=== PATIENT | male | born 1960 | race African-American/Black ===

== ENCOUNTER 2018-03-19 10:12 | Inpatient (IN) | payer OTHER ==
[2018-03-19 11:15] LABS: INR-International Normal Ratio 1.3; PTT 31.5 SEC (22.9-36.1)
[2018-03-19 11:16] LABS: Hemoglobin 11.1 g/dL (14.0-18.0); Mean Corpuscular HGB CONC 31.4 g/dL (32.0-36.0); Mean Corpuscular Hemoglobin 26.4 pg (27.0-31.0); Mean Corpuscular Volume 84.2 fL (78.0-98.0); Platelet Count 196 thou/uL (130-400); RBC Distribution Width 15.6 % (11.5-14.5); Red Blood Cell (RBC) Count 4.21 mill/uL (4.70-6.10); White Blood Cell (WBC) Count 6.9 thou/uL (4.8-10.8)
[2018-03-19 11:20] LABS: Base Excess-Venous 1.3 mmol/L (0 (+/- 2.5)); Bicarbonate (HCO3v) 28.2 mmol/L (1.0-85.0); CO2 Tension (PvCO2) 53.6 mmHg (41.0-51.0); Calcium, Ionized 1.07 mmol/L (1.12-1.32); Hemoglobin - Calc 12.7 g/dL (12.0-18.0); O2 Tension (PvO2) 52.8 mmHg (35.0-45.0); T. Carbon Dioxide 29.9 mmol/L (1.0-85.0); vO2 Saturation-calc 83.7 % (94-98)
[2018-03-19 11:27] LABS: ALT (SGPT) 47 U/L (8-55); AST (SGOT) 30 U/L (5-34); Albumin 3.9 g/dL (3.5-5.0); Alkaline Phosphatase 116 U/L (40-150); Anion Gap 13 mmol/L (10-20); BUN (Urea Nitrogen) 22 mg/dL (8.4-25.7); CK (CPK) 177 U/L (30-200); Calc. Creatinine Clearance 0 mL/min (70-130); Calcium 8.5 mg/dL (7.8-10.44); Carbon Dioxide 26 mmol/L (22-29); Chloride 106 mmol/L (98-107); Estimated GFR-MDRD 65; Globulin 2.6 g/dL (2.4-3.5); Glucose 95 mg/dL (70-105); Lipase 6 U/L (8-78); Potassium 4.1 mmol/L (3.5-5.1); Protein, Total 6.5 g/dL (6.0-8.3); Sodium 141 mmol/L (136-145)
[2018-03-19 11:32] LABS: CKMB 5.2 ng/mL (0-6.6); Troponin I 0.022 ng/mL (< 0.028)
[2018-03-19] MEDS ORDERED: Furosemide 100 MG/10 ML VIAL ONE (11:33)
[2018-03-19] MEDS ORDERED: Nitroglycerin 0.4 MG TAB (25 Tab Bottle) ONE (11:33)
[2018-03-19 11:57] LABS: Band 2 % (5-11); Eosinophils 2 % (0-10); Large Platelets SLIGHT; Lymphocytes 10 % (21-51); MDiff Complete? YES; Neutrophil 86 % (42-75); PLT Morphology Comment Appears Adequate; Polychromasia SLIGHT = 2-3 cells (100X) (0-2/hpf)
[2018-03-19] MEDS ORDERED: methylPREDNISolone Sod Succ/PF 125 MG/2 ML VIAL ONE (12:08)
[2018-03-19] MEDS ORDERED: Enalaprilat Dihydrate 1.25 MG/ML VIAL ONE (13:16)
--- NOTE | 2018-03-19 13:27 | RAD ---
FRONTAL RADIOGRAPH CHEST: DATE: 03/19/18. COMPARISON: 10/04/16. HISTORY: Passed out, dyspnea, pain. FINDINGS: Stable prominence of the cardiac silhouette. Pulmonary vascular congestion noted. Stable dual-lead AICD. No pneumothorax, lobar consolidation, or alveolar edema. IMPRESSION: Pulmonary vascular congestion and prominence of the cardiac silhouette. POS: [facility]
[2018-03-19] MEDS ORDERED: Sodium Chloride 0.9% 50 ML IVPB SCH (13:30)
[2018-03-19] MEDS ORDERED: Ondansetron HCl/PF 4 MG/2 ML Vial IVP PRN ×2 (16:17→17:12)
[2018-03-19] MEDS ORDERED: Ondansetron ODT 4 MG TAB SL PRN (16:17)
[2018-03-19] MEDS ORDERED: Acetaminophen 325 MG TAB PO PRN (16:17)
[2018-03-19 17:10] VITALS: BMI 39.2
[2018-03-19] MEDS ORDERED: Dextrose 5% in Water 1,000 ML IV PRN (17:12)
[2018-03-19] MEDS ORDERED: Labetalol HCl 100 MG/20 ML VIAL SLOW IVP PRN (17:12)
[2018-03-19] MEDS ORDERED: Ondansetron ODT 4 MG TAB PO PRN (17:12)
[2018-03-19] MEDS ORDERED: Dextrose 50% Abboject 50 ML SYRINGE SLOW IVP PRN (17:12)
[2018-03-19] MEDS ORDERED: HumaLOG 300 UNITS/3 ML VIAL SC PRN (17:12)
[2018-03-19] MEDS ORDERED: Enoxaparin Sodium 40 MG/0.4 ML SYRINGE SC SCH (17:12)
[2018-03-19] MEDS ORDERED: Acetaminophen 650 MG Suppository PR PRN (17:12)
[2018-03-19 18:12] LABS: CKMB 5.3 ng/mL (0-6.6); Troponin I 0.017 ng/mL (< 0.028)
[2018-03-19] MEDS: Furosemide 40 MG/4 ML VIAL SLOW IVP SCH ×2 (18:33→22:13)
[2018-03-19] MEDS: Mometasone 100 MCG HFA INHALER INH SCH (18:44)
[2018-03-19] MEDS: Ipratropium Bromide 2.5 ml Neb NEB SCH (18:45)
[2018-03-19] MEDS ORDERED: Nitroglycerin 2% Ointment 1 INCH/1 GM Packet TOP SCH (20:00)
[2018-03-19] MEDS: Atorvastatin Calcium 40 MG TAB PO SCH (21:09)
[2018-03-19] MEDS: Famotidine 20 MG TAB PO SCH (21:09)
[2018-03-19] MEDS: hydrALAZINE 25 MG TAB PO SCH (21:09)
[2018-03-19] MEDS: Metoprolol Tartrate 100 MG TAB PO SCH (21:10)
[2018-03-19] MEDS: Terazosin HCl 5 MG CAP PO SCH (21:10)
[2018-03-19] MEDS: Acetaminophen 325 MG TAB PO PRN (21:11)
[2018-03-20] MEDS: Ipratropium Bromide 2.5 ml Neb NEB SCH ×5 (00:02→23:50)
[2018-03-20] MEDS: Nitroglycerin 2% Ointment 1 INCH/1 GM Packet TOP SCH ×4 (00:09→21:31)
[2018-03-20 02:02] LABS: #Lymphocytes 1.2 thou/uL (1.20-3.40); #Monocytes 0.6 thou/uL (0.11-0.59); #Neutrophils 3.9 thou/uL (1.40-6.50); %Basophils 0.8 % (0.0-1.0); %Eosinophils 0.2 % (0.0-10.0); %Lymphocytes 20.8 % (21.0-51.0); %Monocytes 10.4 % (0.0-10.0); %Neutrophils 67.8 % (42.0-75.0); Hemoglobin 11.7 g/dL (14.0-18.0); Mean Corpuscular HGB CONC 34.6 g/dL (32.0-36.0); Mean Corpuscular Hemoglobin 28.7 pg (27.0-31.0); Mean Corpuscular Volume 83.1 fL (78.0-98.0); Mean Platelet Volume 8.8 fL (7.4-10.4); Platelet Count 142 thou/uL (130-400); RBC Distribution Width 15.7 % (11.5-14.5); Red Blood Cell (RBC) Count 4.07 mill/uL (4.70-6.10); White Blood Cell (WBC) Count 5.7 thou/uL (4.8-10.8)
[2018-03-20 02:11] LABS: Hemoglobin A1c 5.9 % (4.0-6.0)
[2018-03-20 02:23] LABS: CKMB 3.8 ng/mL (0-6.6); Troponin I 0.033 ng/mL (< 0.028)
[2018-03-20 02:24] LABS: Anion Gap 15 mmol/L (10-20); BUN (Urea Nitrogen) 21 mg/dL (8.4-25.7); Calc. Creatinine Clearance 125 mL/min (70-130); Calcium 8.6 mg/dL (7.8-10.44); Carbon Dioxide 27 mmol/L (22-29); Cardiac Risk 3.6 (Less than 4.5); Chloride 104 mmol/L (98-107); Cholesterol 124 mg/dl (< 200 Desired); Estimated GFR-MDRD 74; Glucose 164 mg/dL (70-105); HDL Cholesterol 34 mg/dL (>60 Neg Risk); LDL Cholesterol, Calculated 71 mg/dL; Magnesium 1.8 mg/dL (1.6-2.6); Potassium 3.5 mmol/L (3.5-5.1); Sodium 142 mmol/L (136-145); Triglycerides 96 mg/dL (Less than 150)
[2018-03-20] MEDS: Furosemide 40 MG/4 ML VIAL SLOW IVP SCH ×4 (05:39→23:41)
[2018-03-20] MEDS ORDERED: Spiriva 18 MCG CAP (Box of 5 Caps) INH SCH (07:00)
[2018-03-20] MEDS: Mometasone 100 MCG HFA INHALER INH SCH ×2 (07:41→19:12)
[2018-03-20] MEDS: hydrALAZINE 25 MG TAB PO SCH ×3 (09:01→20:06)
[2018-03-20] MEDS: Enoxaparin Sodium 40 MG/0.4 ML SYRINGE SC SCH (09:02)
[2018-03-20] MEDS: Metoprolol Tartrate 100 MG TAB PO SCH ×2 (09:02→20:07)
[2018-03-20] MEDS: Famotidine 20 MG TAB PO SCH ×2 (09:02→20:07)
--- NOTE | 2018-03-20 14:33 | PDOC.PN ---
- Subjective Encounter Start Date: 03/20/18 Encounter Start Time: 10:50 Pt sleepy, but arousable. says he is breathing better, feels better, no CP or SOB, no orthopnea or PND. No N/V/d/C Weight down 29 pounds since admit, doubt accurate. I/O admit to 0700 show neg 700ml All systems reviewed and neg x as above, echo pending - Objective Resuscitation Status: Resuscitation Status FULL:Full Resuscitation MAR Reviewed: Yes Vital Signs & Weight: Vital Signs (12 hours) Temp Pulse Resp BP BP Pulse Ox 03/20/18 13:36 54 L 12 03/20/18 12:00 97.2 F L 54 L 18 141/83 H 99 03/20/18 09:01 59 L 169/101 H 03/20/18 08:00 97.6 F 59 L 18 169/101 H 100 03/20/18 07:41 64 12 96 03/20/18 07:40 64 12 03/20/18 04:00 97.8 F 58 L 12 132/95 H 99 Weight Weight 266 lb I&O: 03/19/18 03/20/18 03/21/18 06:59 06:59 06:59 Intake Total 100 240 Output Total 700 Balance -600 240 Result Diagrams: 03/20/18 01:45 03/20/18 01:45 Additional Labs: Accuchecks 03/20/18 03/20/18 03/19/18 10:46 05:44 20:35 POC Glucose 199 H 136 H 167 H Phys Exam - Physical Examination Constitutional: NAD HEENT: PERRLA, moist MMs, sclera anicteric, oral pharynx no lesions Neck: no nodes, no JVD, supple, full ROM Respiratory: no wheezing, no rhonchi, clear to auscultation bilateral bibasilar crackles present, but improved Cardiovascular: RRR, no rub Gastrointestinal: soft, non-tender, positive bowel sounds Musculoskeletal: edema present Neurological: non-focal, normal sensation, moves all 4 limbs Lymphatic: no nodes Psychiatric: normal affect, A&O x 3 Skin: no rash, normal turgor, cap refill <2 seconds Dx/Plan (1) Acute on chronic combined systolic (congestive) and diastolic (congestive) heart failure Code(s): I50.43 - ACUTE ON CHRONIC COMBINED SYSTOLIC AND DIASTOLIC HRT FAIL Status: Acute (2) Hypertensive urgency Code(s): I16.0 - HYPERTENSIVE URGENCY Status: Chronic (3) HTN (hypertension) Code(s): I10 - ESSENTIAL (PRIMARY) HYPERTENSION Status: Chronic Qualifiers: Hypertension type: essential hypertension Qualified Code(s): I10 - Essential (primary) hypertension (4) HLD (hyperlipidemia) Code(s): E78.5 - HYPERLIPIDEMIA, UNSPECIFIED Status: Chronic Qualifiers: Hyperlipidemia type: unspecified Qualified Code(s): E78.5 - Hyperlipidemia , unspecified (5) Seizure disorder Code(s): G40.909 - EPILEPSY, UNSP, NOT INTRACTABLE, WITHOUT STATUS EPILEPTICUS Status: Acute - Plan cont current plan of care * . trop neg, tele neg, echo pending, contiue IV lasix today. strict I/O and daily weight
[2018-03-20] MEDS: Terazosin HCl 5 MG CAP PO SCH (20:07)
[2018-03-20] MEDS: Atorvastatin Calcium 40 MG TAB PO SCH (20:07)
[2018-03-20] MEDS: Acetaminophen 325 MG TAB PO PRN (20:19)
[2018-03-21] MEDS: Furosemide 40 MG/4 ML VIAL SLOW IVP SCH ×3 (04:40→16:58)
[2018-03-21] MEDS: Nitroglycerin 2% Ointment 1 INCH/1 GM Packet TOP SCH ×3 (05:46→20:56)
[2018-03-21 06:05] LABS: #Lymphocytes 1.2 thou/uL (1.20-3.40); #Monocytes 0.6 thou/uL (0.11-0.59); #Neutrophils 3.2 thou/uL (1.40-6.50); %Basophils 0.6 % (0.0-1.0); %Eosinophils 0.9 % (0.0-10.0); %Lymphocytes 24.3 % (21.0-51.0); %Neutrophils 63.3 % (42.0-75.0); Hemoglobin 11.6 g/dL (14.0-18.0); Mean Corpuscular HGB CONC 31.9 g/dL (32.0-36.0); Mean Corpuscular Hemoglobin 27.1 pg (27.0-31.0); Platelet Count 143 thou/uL (130-400); RBC Distribution Width 15.7 % (11.5-14.5); Red Blood Cell (RBC) Count 4.27 mill/uL (4.70-6.10); White Blood Cell (WBC) Count 5.1 thou/uL (4.8-10.8)
[2018-03-21 06:12] LABS: Anion Gap 12 mmol/L (10-20); BUN (Urea Nitrogen) 20 mg/dL (8.4-25.7); Calc. Creatinine Clearance 113 mL/min (70-130); Calcium 8.5 mg/dL (7.8-10.44); Carbon Dioxide 30 mmol/L (22-29); Chloride 104 mmol/L (98-107); Estimated GFR-MDRD 77; Glucose 115 mg/dL (70-105); Magnesium 1.9 mg/dL (1.6-2.6); Potassium 3.1 mmol/L (3.5-5.1); Sodium 143 mmol/L (136-145)
[2018-03-21] MEDS: Mometasone 100 MCG HFA INHALER INH SCH ×2 (06:53→19:23)
[2018-03-21] MEDS: Ipratropium Bromide 2.5 ml Neb NEB SCH ×3 (06:54→19:21)
[2018-03-21] MEDS: Metoprolol Tartrate 100 MG TAB PO SCH ×2 (08:44→20:52)
[2018-03-21] MEDS: Famotidine 20 MG TAB PO SCH ×2 (08:44→20:53)
[2018-03-21] MEDS: hydrALAZINE 25 MG TAB PO SCH ×3 (08:44→20:53)
[2018-03-21] MEDS: Enoxaparin Sodium 40 MG/0.4 ML SYRINGE SC SCH (08:45)
[2018-03-21] MEDS ORDERED: Potassium Chloride 20 MEQ TAB PO SCH (12:30)
--- NOTE | 2018-03-21 15:09 | PDOC.PN ---
- Subjective Encounter Start Date: 03/21/18 Encounter Start Time: 15:00 Subjective: f/u for acute systolic CHF exacerbation. Weight down 7lbs in last -: 24h. Less SOB and feels shank pinner. Appetite ok. - Objective Resuscitation Status: Resuscitation Status FULL:Full Resuscitation MAR Reviewed: Yes Vital Signs & Weight: Vital Signs (12 hours) Temp Pulse Resp BP BP Pulse Ox 03/21/18 12:00 98.1 F 52 L 17 128/77 97 03/21/18 08:44 56 L 131/78 03/21/18 08:00 98.6 F 56 L 18 131/78 96 03/21/18 07:41 98.2 F 70 12 96 03/21/18 06:54 70 12 03/21/18 04:00 97.9 F 54 L 19 145/94 H 98 Weight Weight 259 lb 12.8 oz I&O: 03/20/18 03/21/18 03/22/18 06:59 06:59 06:59 Intake Total 100 1460 Output Total 700 5150 Balance -600 -3690 Result Diagrams: 03/21/18 05:22 03/21/18 05:22 Additional Labs: Accuchecks 03/21/18 03/21/18 03/20/18 10:48 05:45 20:53 POC Glucose 136 H 132 H 164 H 03/20/18 16:35 POC Glucose 104 Laboratory Tests 03/19/18 03/20/18 10:54 01:45 Potassium 4.1 3.5 Triglycerides 96 Cholesterol 124 LDL Cholesterol, Calc 71 HDL Cholesterol 34 Radiology Reviewed by me: Yes (2D Echo - EF 35-40%, mild LAE) EKG Reviewed by me: Yes (Tele - SR in 60's) Phys Exam - Physical Examination Constitutional: NAD HEENT: PERRLA, sclera anicteric, oral pharynx no lesions Neck: no nodes, no JVD, supple, full ROM few bibasilar crackles Respiratory: no wheezing S1, S2 Cardiovascular: RRR, no significant murmur, no rub, gallop Gastrointestinal: soft, non-tender, no distention, positive bowel sounds mild peripheral edema Musculoskeletal: pulses present Neurological: non-focal, normal sensation, moves all 4 limbs Psychiatric: normal affect, A&O x 3 Skin: no rash, normal turgor, cap refill <2 seconds Dx/Plan (1) Acute systolic CHF (congestive heart failure) Code(s): I50.21 - ACUTE SYSTOLIC (CONGESTIVE) HEART FAILURE Status: Acute Comment: EF 35-40%, continue Lasix 40mg IV q8h, strict I/O's, daily weight (2) Hypokalemia Code(s): E87.6 - HYPOKALEMIA Status: Acute Comment: KCL 40meq BID, repeat K + level in am (3) Seizure disorder Code(s): G40.909 - EPILEPSY, UNSP, NOT INTRACTABLE, WITHOUT STATUS EPILEPTICUS Status: Acute (4) HTN (hypertension) Code(s): I10 - ESSENTIAL (PRIMARY) HYPERTENSION Status: Chronic Qualifiers: Hypertension type: essential hypertension Qualified Code(s): I10 - Essential (primary) hypertension Comment: Continue outpt BP regimen, serial monitoring, titrate to clinical response (5) Diabetes mellitus, type II, insulin dependent Code(s): E11.9 - TYPE 2 DIABETES MELLITUS WITHOUT COMPLICATIONS; Z79.4 - [facility] (CURRENT) USE OF INSULIN Status: Chronic Comment: Continue NHP insulin 10u qam and 20u qhs, ISS - Plan [employer], DVT proph w/SCDs Stable currently -: Continue Lasix 40mg IV q8h -: Resume home NPH insulin -: Resume home BP regimen -: Continue ASA/Lipitor * KCL 40meq BID * AM lab: BMP
[2018-03-21] MEDS: Potassium Chloride 20 MEQ TAB PO SCH (16:57)
[2018-03-21] MEDS: Atorvastatin Calcium 40 MG TAB PO SCH (20:51)
[2018-03-21] MEDS: Calcium Carbonate + Vit D 250 MG TAB PO SCH (20:52)
[2018-03-21] MEDS: Terazosin HCl 5 MG CAP PO SCH (20:52)
[2018-03-21] MEDS: Acetaminophen 325 MG TAB PO PRN (20:55)
[2018-03-21] MEDS ORDERED: Atorvastatin Calcium 40 MG TAB PO SCH (21:00)
[2018-03-21] MEDS ORDERED: Non-Formulary Item 1 EACH (Terazosin Hcl [Terazosin Hcl] 10 MG) PO SCH (21:00)
[2018-03-21] MEDS ORDERED: NPH, Human Insulin Isophane 300 UNIT/3 ML VIAL SC SCH (21:00)
[2018-03-21] MEDS ORDERED: CARBAMAZEPINE 400 MG PO SCH (21:00)
[2018-03-22] MEDS: Furosemide 40 MG/4 ML VIAL SLOW IVP SCH ×2 (00:18→10:28)
[2018-03-22] MEDS: Ibuprofen 200 MG TAB PO PRN ×3 (00:18→10:44)
[2018-03-22] MEDS: Ipratropium Bromide 2.5 ml Neb NEB SCH ×2 (00:30→06:50)
[2018-03-22] MEDS: Nitroglycerin 2% Ointment 1 INCH/1 GM Packet TOP SCH (05:47)
[2018-03-22 06:16] LABS: Anion Gap 13 mmol/L (10-20); BUN (Urea Nitrogen) 15 mg/dL (8.4-25.7); Calc. Creatinine Clearance 113 mL/min (70-130); Calcium 8.6 mg/dL (7.8-10.44); Carbon Dioxide 30 mmol/L (22-29); Chloride 103 mmol/L (98-107); Estimated GFR-MDRD 80; Glucose 116 mg/dL (70-105); Potassium 3.2 mmol/L (3.5-5.1); Sodium 143 mmol/L (136-145)
[2018-03-22] MEDS: Mometasone 100 MCG HFA INHALER INH SCH (06:50)
[2018-03-22] MEDS ORDERED: Lisinopril 20 MG TAB PO SCH (09:00)
[2018-03-22] MEDS ORDERED: CARBAMAZEPINE 200 MG PO SCH (09:00)
[2018-03-22] MEDS ORDERED: NPH, Human Insulin Isophane 300 UNIT/3 ML VIAL SC SCH (09:00)
[2018-03-22] MEDS ORDERED: Spiriva 18 MCG CAP (Box of 5 Caps) INH SCH (09:00)
[2018-03-22] MEDS ORDERED: Allopurinol 100 MG TAB PO SCH (09:00)
[2018-03-22] MEDS ORDERED: Venlafaxine HCl XR 150 MG CAP PO SCH (09:00)
[2018-03-22] MEDS: Famotidine 20 MG TAB PO SCH (10:25)
[2018-03-22] MEDS: Enoxaparin Sodium 40 MG/0.4 ML SYRINGE SC SCH (10:36)
[2018-03-22] MEDS: Potassium Chloride 20 MEQ TAB PO SCH (10:40)
[2018-03-22] MEDS: Calcium Carbonate + Vit D 250 MG TAB PO SCH (10:41)
[2018-03-22] MEDS: hydrALAZINE 25 MG TAB PO SCH (10:42)
--- NOTE | 2018-03-22 11:23 | DIS ---
DATE OF ADMISSION: 03/19/2018 DATE OF DISCHARGE: 03/22/2018 DISCHARGE DIAGNOSES: 1. Acute on chronic systolic congestive heart failure with ejection fraction of 35%-40%. 2. Hypokalemia. 3. Seizure disorder, stable. 4. Hypertension, labile. 5. Diabetes mellitus type 2, insulin requiring. CONSULTATIONS: None. PERTINENT LABORATORY DATA AND IMAGING DATA: Potassium ranged between 3.1-4.1, creatinine ranged betw een 1.14-1.36. Estimated GFR ranged between 65-80. BNP 1950, previously noted 1674 on 10/04/2016. Total cholesterol 124, triglycerides 96, HDL 34, LDL 71. Portable chest x-ray dated 03/19/2018 showe d pulmonary vascular prominence consistent with pulmonary edema. A 2D transthoracic echocardiogram d ated 03/20/2018 showed ejection fraction of 35%-40%. Mild left atrial enlargement. HOSPITAL COURSE: Patient was initially admitted to the telemetry unit after presenting with increase d shortness of breath and volume overload with chest imaging showing pulmonary edema. The patient wa s placed on IV Lasix throughout the hospital course with excellent diuresis and approximate 14 pound weight loss during the hospital course. The patient continued on IV Lasix until point of discharge, transitioning to Lasix 80 mg p.o. daily. The patient symptomatically improved and was maintaining O2 saturations greater than 90% on room air. The patient clinically improved without recurrence of marii rtness of breath with stable vital signs. The patient overall remained clinically stable during the hospital course, tolerating regular oral intake and voiding appropriately. I have examined the patie nt at the time of discharge and discussed followup instructions. The patient overall clinically sta ble and ready for discharge on 03/22/2018. DISCHARGE MEDICATIONS: 1. Allopurinol 100 mg p.o. daily. 2. Lipitor 40 mg p.o. at bedtime. 3. Calcium carbonate with vitamin D 250 mg p.o. t.i.d. 4. Carbamazepine extended release 200 mg p.o. daily and 400 mg p.o. at bedtime. 5. Flovent 110 grams inhaled b.i.d. 6. Lasix 80 mg p.o. daily. 7. Hydralazine 50 mg p.o. t.i.d. 8. NPH insulin 10 units subcutaneously q.a.m. and 20 units subcutaneously at bedtime. 9. Imdur extended release 30 mg p.o. b.i.d. 10. Lactulose 20 grams p.o. b.i.d. p.r.n. 11. Lisinopril 40 mg 1 tab p.o. daily. 12. Meloxicam 7.5 mg p.o. b.i.d. 13. Toprol-XL 100 mg p.o. b.i.d. 14. K-Dur 20 mEq p.o. t.i.d. 15. Terazosin 10 mg p.o. at bedtime. 16. Spiriva HandiHaler 18 mcg inhaled daily. 17. Venlafaxine 150 mg p.o. daily. FOLLOWUP: Patient will follow up with the [facility] after discharge. CONDITION ON DISCHARGE: Fair. ACTIVITY: Ad shaq. DIET: Heart healthy and ADA. CODE STATUS: FULL. DISPOSITION: Discharged to [facility] on 03/22/2018. Total time preparing and coordinating discharge is 34 minutes.
[2018-03-22 13:28] VITALS: BP 132/78
[2018-03-22 13:29] VITALS: TEMP 98.6
[2018-03-22] MEDS: Acetaminophen 325 MG TAB PO PRN (13:33)
--- NOTE | 2018-03-23 14:02 | HP ---
DATE OF ADMISSION: 03/19/2018 TIME OF SERVICE: 11:30 CHIEF COMPLAINT: Chest pain and shortness of breath. HISTORY OF PRESENT ILLNESS: Mr. Chandler is a 57-year-old male with a history of diabe gay mellitus type 2, GERD, hyperlipidemia, primary cholesterol, hypertension, osteoarthritis, COPD, g out, and recurrent genital herpes, who is brought to our facility from the [facility] for dalia luation of shortness of breath. The patient was seen initially in the emergency department. CBC looks fairly good. Chemistries were significant for creatinine of 1.36 and a BNP of 1949. Chest x-ray in the emergency department showe d some pulmonary vascular congestion and enlarged cardiac silhouette. We were subsequently called fo r admission for CHF exacerbation. The patient relates a history of approximately 40 pound weight gain. He said he periodically ends up having to come into the hospital to get diuresis. He does have orthopnea and PND, has some dyspnea on exertion. Currently, has no chest pain. No fevers or chills. No cough or sputum production. No diarrhea, constipation. No GI blood loss. In the emergency department, he did receive some enalapril for elevated blood pressure, Solu-Medrol, sublingual nitroglycerin x3, 80 mg of IV Lasix and a DuoNeb treatment. He has been urinating well an d is breathing better. PAST MEDICAL HISTORY: 1. Chronic heart failure. 2. Diabetes mellitus type 2. 3. Gastroesophageal reflux disease. 4. Hyperlipidemia. 5. Essential hypertension. 6. Osteoarthritis. 7. Chronic obstructive pulmonary disease. 8. Herpes simplex infection. 9. Osteoarthritis. 10. Gout. 11. Anxiety and depression. PAST SURGICAL HISTORY: 1. Includes a dual-chamber pacemaker placement. 2. Right arm pinning after a fall and fracture. MEDICATIONS: At [facility]. 1. Allopurinol 100 mg daily. 2. Aspirin 81 mg daily. 3. Atorvastatin 40 mg p.o. at bedtime. 4. Calcium carbonate with vitamin D3 250 mg p.o. t.i.d. 5. Carbamazepine 200 mg p.o. q.a.m. and 400 mg p.o. q.p.m. 6. Flovent HFA 1 puff inhaled b.i.d. 7. Lasix 80 mg p.o. daily. 8. Isosorbide mononitrate 30 mg p.o. b.i.d. 9. Lactulose 30 mL p.o. b.i.d. p.r.n. constipation. 10. Lisinopril 40 mg daily. 11. Meloxicam 7.5 mg daily. 12. Metoprolol succinate 100 mg p.o. b.i.d. 13. Novolin N 10 units q.a.m. and 20 units subq q.p.m. 14. Potassium chloride 20 mEq t.i.d. 15. Spiriva HandiHaler 1 puff inhaled daily. 16. Trazodone 10 mg p.o. daily. 17. Venlafaxine 150 mg p.o. q.p.m. 18. Hydralazine 50 mg p.o. t.i.d. ALLERGIES: NKDA. FAMILY HISTORY: Negative for clotting or bleeding disorder. No immune dysfunction. He does not hav e any early coronary artery disease. SOCIAL HISTORY: Negative for alcohol or drug use. Does have a history of smoking, quit smoking 7-8 years ago. Currently an inmate at the [facility]. REVIEW OF SYSTEMS: All systems reviewed and negative except as stated per HPI. PHYSICAL EXAMINATION: VITAL SIGNS: Temperature 98.2, pulse 66, blood pressure 193/135, respiratory rate 24, satting 97% on 2 liters nasal cannula. GENERAL: He is awake. He is alert and oriented x3. He is an obese male, appears i n no acute distress. HEENT: Normocephalic, atraumatic. Pupils equal, react bilaterally. NECK: JVD to approximately 7 cm at 45 degrees. He has normal carotid upstrokes. I do not appreciat e bruits. He has good range of motion. LUNGS: Coarse bibasilar crackles present bilaterally. He has no wheezes. No prolonged expiratory p hase. There is no rhonchi. CARDIOVASCULAR: Normal S1, S2. No S3. He does have an S4. No audible murmurs. ABDOMEN: Soft, it is obese. It is nontender, nondistended. He had good bowel sounds in all 4 quadr ants. There is no rebound, rigidity or guarding. EXTREMITIES: No cyanosis or clubbing with 2+ edema to the knee level. Cannot palpate pulses are pre sent, but his extremities are cool. Capillary refill is 2-3 seconds. SKIN: Warm, moist and well perfused. He has no other rashes or lesions. MUSCULOSKELETAL: Normal to inspection. Large joints appear normal. There is no evidence of inflamm ation. No palpable effusion. NEUROLOGIC: Shows cranial nerves II-XII grossly intact. No focal deficits, 5/5 strength in all 4 ex tremities and normal speech pattern. LABORATORY DATA: Sodium 141, potassium 4.1, chloride 106, bicarb 26, BUN 13, creatinine 1.36, glucos e 95, and calcium 8.5. Liver functions were within normal limits. CK is normal at 177, CK-MB 5.2 an d troponin I 0.022. BNP is 1949.7 and lipase normal at 6. CBC showed a white count of 6.9, hemoglobin 11.1, hematocrit 35.4, and platelet count is 196,000. 86 % granulocytes and 2% bands. INR is 1.3. VBG was apparently normal. Chest x-ray as above. IMPRESSION: 1. Acute on chronic heart failure, unknown systolic, diastolic or combined. We will get a 2-D echoc ardiogram, serial cardiac biomarkers. We will continue home medications. It is likely set off due t o uncontrolled hypertension. 2. Hypertensive urgency. The patient came in with a blood pressure in the 190s/130s. We will give IV hydralazine. Continue home medications and titrate up as needed. Continue IV Lasix scheduled and will get strict I's and O's and daily weights. 3. Essential hypertension as above. 4. Diabetes mellitus type 2. Continue home medications and sliding scale insulin. 5. Deep venous thrombosis prophylaxis. We will use IV Lovenox for DVT prophylaxis and Pepcid for GI prophylaxis.
== END 2018-03-22 14:31 | DRG 293 ==
LOC: ERS 10:12 → 2NO 16:12
PROVIDERS: ADMIT Internal Medicine Infectious Disease; ATTEND Internal Medicine Infectious Disease
DX: I11.0 Hypertensive heart disease with heart failure (principal); I50.43 Acute on chronic combined systolic (congestive) and diastolic (congestive) heart failure; E87.6 Hypokalemia; G40.909 Epilepsy, unspecified, not intractable, without status epilepticus; Z79.4 Long term (current) use of insulin; I16.0 Hypertensive urgency; E78.5 Hyperlipidemia, unspecified; F41.9 Anxiety disorder, unspecified; F32.9 Major depressive disorder, single episode, unspecified; Z87.891 Personal history of nicotine dependence; Z95.810 Presence of automatic (implantable) cardiac defibrillator; Z86.711 Personal history of pulmonary embolism; J44.9 Chronic obstructive pulmonary disease, unspecified; Z86.73 Personal history of transient ischemic attack (TIA), and cerebral infarction without residual deficits; E11.51 Type 2 diabetes mellitus with diabetic peripheral angiopathy without gangrene; K21.9 Gastro-esophageal reflux disease without esophagitis; M19.90 Unspecified osteoarthritis, unspecified site; M10.9 Gout, unspecified; A60.00 Herpesviral infection of urogenital system, unspecified
CPT/HCPCS: 36415; 36416; 71045; 80048; 80053; 80061; 82330; 82550; 82553; 82803; 83036; 83690; 83735; 83880; 84484; 85025; 85610; 85730; 93005; 93306; 93798; 94640; 94664; 96365; 96375; A4216; J1650; J1815; J1940; J2930; J7050; J7620; J7644

== ENCOUNTER 2018-04-04 07:43 | Emergency (ER) | payer OTHER ==
[2018-04-04 08:51] LABS: #Eosinphils 0.1 thou/uL (0.0-0.7); #Lymphocytes 1.4 thou/uL (1.20-3.40); #Monocytes 0.6 thou/uL (0.11-0.59); #Neutrophils 5.6 thou/uL (1.40-6.50); %Basophils 0.4 % (0.0-1.0); %Eosinophils 0.8 % (0.0-10.0); %Lymphocytes 18.4 % (21.0-51.0); %Monocytes 7.6 % (0.0-10.0); %Neutrophils 72.9 % (42.0-75.0); Hemoglobin 11.6 g/dL (14.0-18.0); Mean Corpuscular HGB CONC 31.7 g/dL (32.0-36.0); Mean Corpuscular Hemoglobin 26.8 pg (27.0-31.0); Mean Corpuscular Volume 84.6 fL (78.0-98.0); Mean Platelet Volume 8.9 fL (7.4-10.4); Platelet Count 172 thou/uL (130-400); RBC Distribution Width 15.7 % (11.5-14.5); Red Blood Cell (RBC) Count 4.32 mill/uL (4.70-6.10); White Blood Cell (WBC) Count 7.7 thou/uL (4.8-10.8)
[2018-04-04] MEDS ORDERED: Furosemide 40 MG/4 ML VIAL ONE (08:57)
[2018-04-04 09:16] LABS: ALT (SGPT) 49 U/L (8-55); AST (SGOT) 41 U/L (5-34); Albumin 3.8 g/dL (3.5-5.0); Alkaline Phosphatase 116 U/L (40-150); Anion Gap 9 mmol/L (10-20); BUN (Urea Nitrogen) 14 mg/dL (8.4-25.7); Bilirubin, Total 0.5 mg/dL (0.2-1.2); CK (CPK) 138 U/L (30-200); Calc. Creatinine Clearance 0 mL/min (70-130); Calcium 8.8 mg/dL (7.8-10.44); Carbon Dioxide 33 mmol/L (22-29); Chloride 108 mmol/L (98-107); Estimated GFR-MDRD 65; Globulin 2.9 g/dL (2.4-3.5); Glucose 111 mg/dL (70-105); Potassium 3.7 mmol/L (3.5-5.1); Protein, Total 6.7 g/dL (6.0-8.3); Sodium 146 mmol/L (136-145)
[2018-04-04 09:19] LABS: Troponin I 0.042 ng/mL (< 0.028)
[2018-04-04] MEDS ORDERED: hydrALAZINE 20 MG/ML VIAL ONE (09:28)
--- NOTE | 2018-04-04 10:06 | RAD ---
PORTABLE CHEST ONE VIEW: Date: 04-04-18 Time: 8:27 a.m. History: Shortness of breath, dyspnea. FINDINGS/IMPRESSION: Comparison made with exam 03-29-18. The heart size is enlarged. There is pulmonary vascular congestion. Left sided AICD remains in place. No lobar consolidation, pneumothoraces, or large effusions are seen. POS: [facility]
[2018-04-04 12:33] LABS: Troponin I 0.035 ng/mL (< 0.028)
== END 2018-04-04 12:58 | disposition short-term general hospital (02) ==
LOC: ERS 07:43
DX: E87.70 Fluid overload, unspecified (principal); R07.9 Chest pain, unspecified; I11.0 Hypertensive heart disease with heart failure; I50.9 Heart failure, unspecified; K21.9 Gastro-esophageal reflux disease without esophagitis; E78.5 Hyperlipidemia, unspecified; M19.90 Unspecified osteoarthritis, unspecified site; J44.9 Chronic obstructive pulmonary disease, unspecified; M10.9 Gout, unspecified; F41.9 Anxiety disorder, unspecified; I73.9 Peripheral vascular disease, unspecified; F32.9 Major depressive disorder, single episode, unspecified; Z87.891 Personal history of nicotine dependence; Z79.4 Long term (current) use of insulin; Z79.899 Other long term (current) drug therapy; Z79.82 Long term (current) use of aspirin
CPT/HCPCS: 36415; 71045; 80053; 82550; 82553; 83880; 84484; 85025; 93005; 96374; 96375; J0360; J1940

== ENCOUNTER 2019-02-06 11:35 | Emergency (ER) | payer OTHER ==
--- NOTE | 2019-02-06 12:03 | RAD ---
XR Chest 1 View Portable HISTORY: Dyspnea cough COMPARISON: 04/04/2018 FINDINGS: The heart size enlarged. The aorta is tortuous. Left-sided AICD remains in place. There is mild prom inence of the pulmonary vascularity. No lobar consolidation, pneumothoraces or large effusions are seen.
[2019-02-06 12:12] LABS: #Lymphocytes 0.8 thou/uL (1.20-3.40); #Monocytes 0.8 thou/uL (0.11-0.59); #Neutrophils 5.9 thou/uL (1.40-6.50); %Basophils 0.3 % (0.0-1.0); %Eosinophils 0.4 % (0.0-10.0); %Lymphocytes 10.2 % (21.0-51.0); %Monocytes 10.8 % (0.0-10.0); %Neutrophils 78.3 % (42.0-75.0); Hemoglobin 11.3 g/dL (14.0-18.0); Mean Corpuscular HGB CONC 31.8 g/dL (32.0-36.0); Mean Corpuscular Hemoglobin 28.7 pg (27.0-31.0); Mean Corpuscular Volume 90.2 fL (78.0-98.0); Mean Platelet Volume 8.7 fL (7.4-10.4); Platelet Count 205 thou/uL (130-400); RBC Distribution Width 14.3 % (11.5-14.5); Red Blood Cell (RBC) Count 3.95 mill/uL (4.70-6.10); White Blood Cell (WBC) Count 7.6 thou/uL (4.8-10.8)
[2019-02-06 12:36] LABS: ALT (SGPT) 144 U/L (8-55); AST (SGOT) 120 U/L (5-34); Albumin 3.7 g/dL (3.5-5.0); Alkaline Phosphatase 101 U/L (40-150); Anion Gap 15 mmol/L (10-20); BUN (Urea Nitrogen) 28 mg/dL (8.4-25.7); Bilirubin, Total 1.2 mg/dL (0.2-1.2); Calc. Creatinine Clearance 0 mL/min (70-130); Calcium 9.1 mg/dL (7.8-10.44); Carbon Dioxide 26 mmol/L (22-29); Chloride 100 mmol/L (98-107); Estimated GFR-MDRD 63; Globulin 2.2 g/dL (2.4-3.5); Glucose 103 mg/dL (70-105); Protein, Total 5.9 g/dL (6.0-8.3); Sodium 137 mmol/L (136-145)
== END 2019-02-06 14:40 | disposition home or self-care (01) ==
LOC: ERS 11:35
DX: J44.9 Chronic obstructive pulmonary disease, unspecified (principal); E11.9 Type 2 diabetes mellitus without complications; K21.9 Gastro-esophageal reflux disease without esophagitis; E78.5 Hyperlipidemia, unspecified; I11.0 Hypertensive heart disease with heart failure; I50.9 Heart failure, unspecified; F41.9 Anxiety disorder, unspecified; F32.9 Major depressive disorder, single episode, unspecified; Z87.891 Personal history of nicotine dependence; Z79.899 Other long term (current) drug therapy; Z79.82 Long term (current) use of aspirin; Z79.51 Long term (current) use of inhaled steroids; Z79.4 Long term (current) use of insulin
CPT/HCPCS: 36415; 71045; 80053; 83880; 84484; 85025; 93005; 94640; 94760; J7620

== ENCOUNTER 2019-06-11 06:03 | Inpatient (IN) | payer OTHER ==
[2019-06-11] MEDS ORDERED: Dextrose 50% Abboject 50 ML SYRINGE SLOW IVP PRN (08:45)
[2019-06-11] MEDS ORDERED: Dextrose 5% in Water 1,000 ML IV PRN (08:45)
[2019-06-11] MEDS ORDERED: Ondansetron ODT 4 MG TAB PO PRN (08:45)
[2019-06-11] MEDS ORDERED: Bisacodyl 10 MG SUPP PR PRN (08:45)
[2019-06-11] MEDS ORDERED: Senokot S 8.6-50 MG TAB PO PRN (08:45)
[2019-06-11] MEDS ORDERED: HumaLOG 300 UNITS/3 ML VIAL SC PRN (08:45)
[2019-06-11] MEDS ORDERED: Ondansetron PF 4 MG/2 ML Vial IVP PRN (08:45)
[2019-06-11] MEDS ORDERED: Enoxaparin Sodium 40 MG/0.4 ML SYRINGE SC SCH (09:00)
[2019-06-11] MEDS ORDERED: Furosemide 40 MG/4 ML VIAL SLOW IVP SCH ×2 (09:15→17:00)
[2019-06-11] MEDS ORDERED: Metolazone 2.5 MG TAB PO SCH (09:15)
--- NOTE | 2019-06-11 09:50 | HP ---
PRIMARY CARE PROVIDER: [facility]. CHIEF COMPLAINT: Worsening shortness of breath and leg swelling. HISTORY OF PRESENT ILLNESS: A 58-year-old male with known history of chronic systolic heart failure with ejection fraction of 35% to 40% in 2017, diabetes, peripheral artery disease, COPD, and others, admitted on transfer from [facility] for further evaluation and treatment of CHF. The patient reported progressive weight gain since about 1 month associated with worsening shortness of breath and cough and bilateral leg edema associated with orthopnea and PND. The patient reported weight gain of 35 pounds in the last one month. He admitted to not being very compliant with dietary restriction. He denied nausea, vomiting, hematemesis, hematochezia, hematuria, dysuria, but admitted to hesitancy and terminal dribbling. There is also no history of fever, chills, focal weakness, or fall. PAST MEDICAL HISTORY: 1. Chronic heart failure. 2. Type 2 diabetes mellitus. 3. Gastroesophageal reflux disease. 4. Hyperlipidemia. 5. Hypertension. 6. Chronic obstructive pulmonary disease. 7. Osteoarthritis. 8. Anxiety and depression. 9. Peripheral vascular disease. 10. Gout. 11. Cardiac arrhythmia, status post pacemaker placement. PAST SURGICAL HISTORY: 1. Dual-chamber pacemaker placement. 2. Right arm open reduction and internal fixation for fracture. FAMILY HISTORY: Reviewed, but noncontributory. No history of bleeding disorder or coronary artery disease. SOCIAL HISTORY: The patient currently is [facility] in the [facility]. [facility] has been in [facility] since [facility]. Prior to that, he drank alcohol heavily for more than 15 years and he also smoked like a pack a day for more than 20 years. ALLERGIES: NO KNOWN DRUG ALLERGIES REPORTED. HOME MEDICATIONS: 1. Aspirin 81 mg p.o. daily. 2. Lipitor 40 mg p.o. daily. 3. Calcium carbonate with vitamin D3 of p.o. t.i.d. 4. Flovent HFA 1 puff 2 times a day. 5. Furosemide 40 mg p.o. b.i.d. 6. Lisinopril 40 mg p.o. daily. 7. Potassium chloride 40 mEq daily in the morning. 8. Terazosin 10 mg once a day in the evening. 9. Isosorbide mononitrate 30 mg daily. 10. Loratadine 10 mg daily. 11. Spironolactone 25 mg daily. 12. Metformin 500 mg p.o. b.i.d. 13. Docusate sodium plus once daily. REVIEW OF SYSTEMS: 12-point review of systems performed was negative other than pertinent positives and negatives included in the history of present illness. PHYSICAL EXAMINATION: VITAL SIGNS: Temperature 97.5, pulse 94, respiratory rate 20, SpO2 of 95% on room air, blood pressure is 135/96. GENERAL: Obese male, in mild conversational dyspnea. Afebrile. Anicteric. Acyanotic. HEENT: Normocephalic, atraumatic. Oral mucosa is moist. NECK: Supple, nontender with no JVD. No masses were appreciated. CARDIOVASCULAR: Irregular rhythm and rate with normal heart sounds 1 and 2. RESPIRATORY: Fair air entry bilaterally with bibasilar crackles. No rhonchi were appreciated. No use of accessory muscles was noted. GI: Obese, soft, nontender, nondistended with normal bowel sounds. UROGENITAL: Moderate scrotal swelling noted. EXTREMITIES: [id number] bilateral leg edema noted. No erythema was appreciated. TOUR LEADER: Conscious, alert, oriented x3 with appropriate mental status. Cranial nerves 2 through 12 are grossly intact. The patient moves all extremities. DIAGNOSTIC DATA: CBC showed WBC count of 5.2, hemoglobin of 9.9, MCV of 79.6, platelet of 140. Of note, on February 06, 2019, hemoglobin was 11.9 and MCV was 90. Coagulation panel showed PT 17.8, INR 1.5, PTT 36.5. CMP showed sodium 143, potassium 3.0, chloride 103, CO2 of 31, BUN 18, creatinine 1.35, glucose 151, calcium 8.7, magnesium 1.8, total bilirubin 1.0, AST 21, ALT 15, alkaline phosphatase 104, total protein 6, albumin 3.5, globulin 2.5. Initial cardiac markers showed CK-MB 3.9, troponin 0.041, and BNP 968. Troponin has trended downwards to a ree of 0.025 currently. Lactic acid on presentation was 1.2. Chest x-ray showed cardiomegaly with pulmonary vascular congestion, but no definite confluent airspace opacity noted. Small bilateral pleural effusion was noted as well as AICD leads. Initial EKG performed at [facility] showed intermittently paced rhythm with rate of 86, as well as nonspecific ST and T changes. Review of telemetry showed baseline atrial flutter with ventricular paced rhythm. ASSESSMENT: 1. Acute on chronic heart failure, most likely combined systolic and diastolic. The patient has known cardiomyopathy with ejection fraction of 35% to 40% in 2017. 2. Chronic atrial flutter with paced ventricular rhythm. 3. Hypokalemia. 4. Anasarca: Most likely due to congestive heart failure. However, liver pathology cannot be ruled out given significant alcohol use in the past. 5. Peripheral vascular disease. 6. Hyperlipidemia, on statin. 7. Diabetic mellitus. 8. Gastroesophageal reflux disease. 9. Chronic obstructive pulmonary disease without acute exacerbation. 10. History of gout without acute exacerbation. 11. Chronic kidney disease stage 3 with possible reversible component. 12. Acute on chronic microcytic anemia. The patient had hemoglobin of 11.3 in January and currently is 9.9. PLAN: 1. We will start the patient on diuretic therapy with Lasix and metolazone as well as spironolactone. 2. We will replete serum potassium and get magnesium levels. 3. We will also get echocardiogram as well as liver ultrasound. We will also get cardiology consult. We will restart antihypertensives to get adequate BP control. 4. We will get urinalysis. 5. We will also get iron chemistry to rule in or rule out iron deficiency anemia. DuoNeb as needed will be provided for COPD. 6. DVT prophylaxis with Lovenox will be provided as well. 7. The patient wants to be full code. Further treatment to follow depending on hospital course. Job ID: [id number]
[2019-06-11 09:51] LABS: Troponin I 0.042 ng/mL (< 0.028)
--- NOTE | 2019-06-11 10:25 | ULT ---
EXAM: Bilateral lower extremity venous duplex: Deep veins evaluated with color Doppler, spectral analysis, and compression. INDICATIONS: Bilateral lower extremity pain and edema. FINDINGS: Deep veins interrogated include common femoral vein, femoral vein, popliteal vein, and post erior tibial vein. These veins show normal compression and blood flow. No evidence of DVT. IMPRESSION: Negative Bilateral venous duplex exam.
[2019-06-11] MEDS ORDERED: FLU VACC QS2019-20(6MOS UP)/PF 60 MCG/0.5 ML SYRINGE IM ONE (10:30)
[2019-06-11] MEDS ORDERED: Prevnar 13-Val Conj/PF 0.5 ML SYRINGE IM ONE (10:30)
[2019-06-11 11:56] LABS: Iron 41 ug/dL (65-175); Iron Binding Capacity, Total 405 mcg/dL (261-462); Potassium 3.2 mmol/L (3.5-5.1)
[2019-06-11] MEDS: Famotidine 20 MG TAB PO SCH ×2 (12:03→21:46)
[2019-06-11] MEDS: Famotidine/PF 20 mg/2ml Vial SLOW IVP SCH ×2 (13:01→21:47)
[2019-06-11 13:20] LABS: Bacteria/HPF None Seen HPF (None Seen); Bilirubin Negative (Negative); Blood, Urine Negative (Negative); Clarity Clear (Clear); Glucose, Urine (Dipstick) Normal (Negative); Leukocyte Negative Leu/uL (Negative); Nitrite Negative (Negative); Protein, Urine (Dipstick) Negative (Neg-Trace); RBC/HPF 0-3 HPF (0-3); Squamous Epithelial None Seen HPF (0-3); WBC/HPF 0-3 HPF (0-3)
[2019-06-11 13:23] LABS: Urine Culture Reflex No No
--- NOTE | 2019-06-11 15:36 | ULT ---
Gallbladder ultrasound: Multiple grayscale images of right upper quadrant obtained according to protocol. INDICATIONS: Right upper quadrant pain. FINDINGS: Gallbladder has a normal sonographic appearance. No evidence of gallstones. Common bile duct is normal caliber. Liver is enlarged measuring up to 23 cm. No liver mass lesion. Small volume ascites Right pleural effusion is noted. Pancreas is obscured Right kidney is imaged and appears unremarkable. IMPRESSION: 1. Hepatomegaly 2. Small volume ascites. Small right pleural effusion. 3. Gallbladder appears unremarkable
--- NOTE | 2019-06-11 15:43 | CON ---
DATE OF CONSULTATION: 06/11/2019 REASON FOR CONSULTATION: Heart failure. HISTORY OF PRESENT ILLNESS: Mr. Chandler is a 58-year-old inmate who comes to the hospital for worsening shortness of breath. He has a history of nonischemic cardiomyopathy with an EF of around 35% to 40%, was diagnosed in 2017. He sees a screw machine repairer in [place] in [facility]. He tells me he has had a heart catheterization before. He remembers being told that his arteries are wide open. He states that he has gained about 30 to 40 pounds in the last month or so, weight he feels is all fluid weight. He has already been giving Lasix; however, he is not peeing as much, and he feels some pain on the bottom, lower part of his abdomen. He is not aware of having any prostate issues. PAST MEDICAL HISTORY: 1. Nonischemic cardiomyopathy. 2. Type 2 diabetes. 3. GERD. 4. Hyperlipidemia. 5. Hypertension. 6. COPD. 7. Osteoarthritis. 8. Anxiety and depression. 9. Peripheral vascular disease. 10. Gout. 11. Cardiac arrhythmias, status post pacemaker placement. PAST SURGICAL HISTORY: 1. Dual-chamber pacemaker placed. 2. Right arm open reduction and internal fixation. FAMILY HISTORY: Noncontributory. SOCIAL HISTORY: In half-way since 2009. Heavy alcohol use before that for about 15 years. Smoked a pack a day for more than 20 years before that. OUTPATIENT MEDICATIONS: 1. Aspirin 81 a day. 2. Lipitor 40 at bedtime. 3. Calcium carbonate with vitamin D3. 4. Flovent. 5. Lasix 40 mg p.o. b.i.d. 6. Lisinopril 40 mg a day. 7. Potassium chloride 40 mEq a day. 8. Terazosin 10 mg a day. 9. Isosorbide mononitrate 30 mg a day. 10. Loratadine 10 mg a day. 11. Spironolactone 25 mg a day. 12. Metformin 500 mg b.i.d. 13. Docusate. ALLERGIES: NO KNOWN DRUG ALLERGIES. REVIEW OF SYSTEMS: A 12-point review of systems was done and was all negative unless stated in the History of Present Illness. PHYSICAL EXAMINATION: VITAL SIGNS: Temperature 98.4, pulse 88, respiratory rate 28, saturating 95% on room air, and blood pressure 135/96 up to 171/108. GENERAL: Awake, alert, and oriented x3. No distress. HEENT: Normocephalic, atraumatic. NECK: Supple. LUNGS: Clear. CARDIOVASCULAR: S1 and S2. No S3 or S4. No murmurs or rubs. ABDOMEN: Soft. Positive bowel sounds. EXTREMITIES: No edema. SKIN: Warm and dry. LABORATORY DATA: Laboratory work was reviewed. CBC with a white count of 5, hemoglobin 9.9, hematocrit of 34, and platelet count of 140. Coags were unremarkable. Chemistry showed a sodium of 143, potassium 3.0, chloride 103, carbon dioxide of 31, anion gap of 12, BUN 18, creatinine 1.35, and GFR of 65. BNP was 168. Troponin I was unremarkable. UA was unremarkable. IMAGING: Lower extremity venous ultrasound was negative. Chest x-ray showed findings consistent with congestive heart failure. It looks like a chest x-ray that shows more of an AICD rather than a pacemaker. ASSESSMENT: 1. Acute on chronic systolic heart failure. 2. Nonischemic cardiomyopathy, last ejection fraction here in 2017 at 35% to 40% . 3. Pacemaker/automatic implantable cardioverter-defibrillator in place. We will interrogate. 4. Atrial flutter. PLAN: 1. Continue IV diuresis. We will increase his Lasix to 80 mg b.i.d. 2. He is not urinating, however, has some fullness in his lower abdomen, which could be related to just having a full bladder and unable to evacuate. We will place a Julien for better in's and out's. 3. Continue other medications for now. 4. Will consult EP for atrial flutter. May be a candidate for ablation once more euvolemic. Thank you for allowing us to participate in the care of your patient. We will follow. Job ID: [id number] [facility]
[2019-06-11] MEDS: Carvedilol 6.25 MG TAB PO SCH (17:21)
[2019-06-11] MEDS: Warfarin Sodium 2.5 MG TAB PO SCH (17:22)
[2019-06-11] MEDS: Potassium Chloride 20 MEQ TAB PO SCH (17:23)
[2019-06-11] MEDS: Furosemide 40 MG/4 ML VIAL SLOW IVP SCH (17:24)
[2019-06-11] MEDS: Atorvastatin Calcium 40 MG TAB PO SCH (21:46)
[2019-06-11] MEDS: Terazosin HCl 5 MG CAP PO SCH (21:46)
[2019-06-11] MEDS: Allopurinol 100 MG TAB PO SCH (21:46)
[2019-06-11] MEDS: Isosorbide Mononitrate (ER) 30 MG TAB PO SCH (21:46)
[2019-06-11] MEDS: Iron, Sodium Ferric Gluconate 250 MG in Sodium Chloride 0.9% 100 ML IVPB SCH (21:47)
[2019-06-11] MEDS: HYDROcodone/Acetaminophen 5/325 mg Tablet PO PRN (21:50)
[2019-06-12] MEDS: Potassium Chloride 20 MEQ TAB PO SCH (00:29)
[2019-06-12 04:45] LABS: #Basophils 0.1 thou/uL (0.0-0.2); #Eosinphils 0.1 thou/uL (0.0-0.7); #Lymphocytes 1.1 thou/uL (1.20-3.40); #Monocytes 0.8 thou/uL (0.11-0.59); #Neutrophils 3.3 thou/uL (1.40-6.50); %Eosinophils 1.7 % (0.0-10.0); %Lymphocytes 20.5 % (21.0-51.0); %Monocytes 14.7 % (0.0-10.0); %Neutrophils 62.1 % (42.0-75.0); Hemoglobin 9.6 g/dL (14.0-18.0); Mean Corpuscular HGB CONC 30.8 g/dL (32.0-36.0); Mean Corpuscular Hemoglobin 24.4 pg (27.0-31.0); Mean Corpuscular Volume 79.2 fL (78.0-98.0); Mean Platelet Volume 9.6 fL (7.4-10.4); Platelet Count 130 thou/uL (130-400); Red Blood Cell (RBC) Count 3.93 mill/uL (4.70-6.10); White Blood Cell (WBC) Count 5.3 thou/uL (4.8-10.8)
[2019-06-12 04:46] LABS: INR-International Normal Ratio 1.5; Prothrombin Time 17.8 SEC (12.0-14.7)
[2019-06-12 05:10] LABS: ALT (SGPT) 14 U/L (8-55); AST (SGOT) 15 U/L (5-34); Albumin 3.4 g/dL (3.5-5.0); Alkaline Phosphatase 88 U/L (40-110); Anion Gap 8 mmol/L (10-20); BUN (Urea Nitrogen) 17 mg/dL (8.4-25.7); Bilirubin, Total 1.5 mg/dL (0.2-1.2); Calc. Creatinine Clearance 99 mL/min (70-130); Carbon Dioxide 34 mmol/L (22-29); Chloride 106 mmol/L (98-107); Estimated GFR-MDRD 63; Globulin 2.3 g/dL (2.4-3.5); Glucose 109 mg/dL (70-105); Magnesium 1.8 mg/dL (1.6-2.6); Potassium 3.8 mmol/L (3.5-5.1); Protein, Total 5.7 g/dL (6.0-8.3); Sodium 144 mmol/L (136-145)
[2019-06-12] MEDS: Furosemide 40 MG/4 ML VIAL SLOW IVP SCH ×2 (05:27→16:04)
[2019-06-12] MEDS ORDERED: Allopurinol 100 MG TAB PO SCH (09:00)
[2019-06-12] MEDS: Carvedilol 6.25 MG TAB PO SCH ×2 (09:06→16:04)
[2019-06-12] MEDS: Allopurinol 100 MG TAB PO SCH ×2 (09:07→21:17)
[2019-06-12] MEDS: Iron, Sodium Ferric Gluconate 250 MG in Sodium Chloride 0.9% 100 ML IVPB SCH (09:07)
[2019-06-12] MEDS: Metolazone 2.5 MG TAB PO SCH (09:07)
[2019-06-12] MEDS: Isosorbide Mononitrate (ER) 30 MG TAB PO SCH ×2 (09:07→21:18)
[2019-06-12] MEDS: HYDROcodone/Acetaminophen 5/325 mg Tablet PO PRN ×2 (09:11→16:17)
[2019-06-12] MEDS: Famotidine/PF 20 mg/2ml Vial SLOW IVP SCH (09:12)
[2019-06-12] MEDS: Famotidine 20 MG TAB PO SCH ×2 (09:12→21:17)
[2019-06-12] MEDS: HumaLOG 300 UNITS/3 ML VIAL SC PRN (11:18)
[2019-06-12] MEDS ORDERED: Albuterol Sulfate 1.25 MG/3 ML NEB NEB PRN (11:20)
--- NOTE | 2019-06-12 11:35 | PDOC.HOSPP ---
- Subjective Encounter Date: 06/12/19 (f/u heart failure) Encounter Time: 11:33 Subjective: Pt reports he is feeling better, swelling is less. c/o scrotal swelling. Denies cp/sob, n/v/abd pain. Does have decreased appetite. denies any new sx. - Objective Vital Signs & Weight: Vital Signs (12 hours) Temp Pulse Resp BP Pulse Ox 06/12/19 11:12 97.3 F L 81 16 136/94 H 93 L 06/12/19 07:34 98.3 F 86 16 171/104 H 93 L 06/12/19 05:30 97.8 F 90 18 164/102 H 94 L 06/12/19 00:00 98.0 F 96 23 H 174/95 H 94 L Weight Admit Weight 269 lb 8 oz Weight 269 lb 8 oz I&O: 06/11/19 06/12/19 06/13/19 06:59 06:59 06:59 Intake Total 1040 Output Total 4540 Balance -3500 Result Diagrams: 06/12/19 04:11 06/12/19 04:11 Additional Labs: Accuchecks 06/12/19 06/12/19 06/11/19 10:13 05:38 20:24 POC Glucose 202 H 117 H 125 H 06/11/19 06/11/19 16:42 12:06 POC Glucose 110 121 H EKG Reviewed by me: Yes (tele - a flutter <100 and v paced) Hospitalist ROS - Review of Systems Cardiovascular: denies: chest pain, palpitations, orthopnea, paroxysmal noc. dyspnea, edema, light headedness, other Gastrointestinal: denies: nausea, vomiting, abdominal pain, diarrhea, constipation, melena, hematochezia, other - Medication Medications: Active Medications Generic Name Dose Route Start Last Admin Trade Name Freq PRN Reason Stop Dose Admin Hydrocodone Bitart/Acetaminophen 1 tab 06/11/19 08:45 06/12/19 09:11 [place] 5/325 PO 1 tab Q4H PRN Administration Moderate Pain (4-6) Allopurinol 100 mg 06/11/19 21:00 06/12/19 09:07 Zyloprim PO 100 mg BID ARTURO Administration Atorvastatin Calcium 40 mg 06/11/19 21:00 06/11/19 21:46 Lipitor PO 40 mg HS ARTURO Administration Carvedilol 12.5 mg 06/11/19 17:00 06/12/19 09:06 Coreg PO 12.5 mg BID-WM ARTURO Administration Famotidine 20 mg 06/11/19 09:00 06/12/19 09:12 Pepcid SLOW IVP Not Given Q12HR ARTURO Famotidine 20 mg 06/11/19 09:00 06/12/19 09:12 Pepcid PO Not Given BID ARTURO Furosemide 80 mg 06/11/19 17:00 06/12/19 05:27 Lasix SLOW IVP 80 mg 0600,1700 ARTURO Administration Insulin Human Lispro 0 units 06/11/19 08:45 06/12/19 11:18 Humalog SC 4 unit .MODERATE SLIDING SC PRN Administration Moderate Correctional Scale Isosorbide Mononitrate 30 mg 06/11/19 21:00 06/12/19 09:07 Imdur Er PO 30 mg BID ARTURO Administration Metolazone 2.5 mg 06/12/19 08:30 06/12/19 09:07 Zaroxolyn PO 2.5 mg 0830 ARTURO Administration Sodium Chloride 10 ml 06/11/19 21:00 06/12/19 09:07 Flush - Normal Saline IVF 10 ml Q12HR ARTURO Administration Sodium Chloride 10 ml 06/11/19 09:01 06/11/19 17:23 Flush - Normal Saline IVF 10 ml PRN PRN Administration Saline Flush Terazosin HCl 10 mg 06/11/19 21:00 06/11/19 21:46 Hytrin PO 10 mg HS ARTURO Administration Warfarin Sodium 2.5 mg 06/11/19 17:00 06/11/19 17:22 Coumadin PO 2.5 mg 1700 ARTURO Administration - Exam General Appearance: NAD Heart: RRR, no murmur Heart - other findings: distant heart sounds Respiratory: CTAB, no wheezes, no rales, no ronchi Gastrointestinal: soft, non-tender, normal bowel sounds Extremities: no cyanosis, no clubbing Extremities - other findings: 2+ bilateral LE edema with hyperpigmentation Psychiatric: normal affect Hosp A/P (1) Acute on chronic combined systolic (congestive) and diastolic (congestive) heart failure Code(s): I50.43 - ACUTE ON CHRONIC COMBINED SYSTOLIC AND DIASTOLIC HRT FAIL Status: Acute (2) Anemia Code(s): D64.9 - ANEMIA, UNSPECIFIED Status: Chronic (3) CKD (chronic kidney disease) stage 2, GFR 60-89 ml/min Code(s): N18.2 - CHRONIC KIDNEY DISEASE, STAGE 2 (MILD) Status: Chronic (4) Diabetes mellitus, type II, insulin dependent Code(s): E11.9 - TYPE 2 DIABETES MELLITUS WITHOUT COMPLICATIONS; Z79.4 - COLOR DIPPER (CURRENT) USE OF INSULIN Status: Chronic (5) HLD (hyperlipidemia) Code(s): E78.5 - HYPERLIPIDEMIA, UNSPECIFIED Status: Chronic Qualifiers: (6) HTN (hypertension) Code(s): I10 - ESSENTIAL (PRIMARY) HYPERTENSION Status: Chronic Qualifiers: (7) Skin ulcer Code(s): L98.499 - NON-PRESSURE CHRONIC ULCER OF SKIN OF SITES W UNSP SEVERITY Status: Acute - Plan HF - appreciate Cardiology consult, continue diuresis and consult to EP for chronic a flutter chronic a flutter - rate controlled, on warfarin and sub-therapeutic. Will place request to pharmacy to dose HTn - not controlled - add hydralazine (home med) and lisinopril (home med) with hold parameters. Continue beta-wendy and diuresis with IV lasix anxiety/depression - resume home effexor COPD hx - compensated - on flovent - will add pulmicort neb here and prn albutgerol ckd stage 2 - monitor renal function and for anemia - check iron, vitamin b12 and folate skin ulcer - wound care treatment - currently has dressing, I reviewed photo and no surrounding erythema. Reviewed wound culture and staph aureus - will start keflex. Pt has bactrim on med rec - hold on this. dvt prophy - on coumadin gi prophy - not indicated code status full pt remains at high risk in current condition reviewed plan of care with patient, no questions or further needs at end of eval
[2019-06-12] MEDS ORDERED: Docusate Sodium 100 MG/10 ML UDCUP PO PRN (12:09)
--- NOTE | 2019-06-12 14:51 | PDOC.CPN ---
- Subjective Date: 06/12/19 Time: 14:48 Interval history: He has diuresed well. Still not quite to baseline. AICD interrogated and he has been in afib/flutter 99% of the time for last 7 months. - Review of Systems General: denies: fever/chills, weight/appetite/sleep changes, night sweats, fatigue Respiratory: denies: cough, congestion, shortness of breath, exercise intolerance Cardiovascular: denies: chest pain, palpitation, edema, paroxysmal nocturnal dyspnea, orthopnea Gastrointestinal: denies: nausea, vomiting, diarrhea, constipation, abd pain, GI bleeding Musculoskeletal: denies: pain, tenderness, stiffness, swelling, arthritis/ arthralgias Neurological: denies: numbness, syncope, seizure, weakness - Objective Allergies/Adverse Reactions: Allergies Allergy/AdvReac Type Severity Reaction Status Date / Time No Known Allergies Allergy Unverified 06/11/19 08:07 Visit Medications: Current Medications Acetaminophen (Tylenol) 650 mg PO Q4H PRN PRN Reason: Headache/Fever/Mild Pain (1-3) Hydrocodone Bitart/Acetaminophen ([place] 5/325) 1 tab PO Q4H PRN PRN Reason: Moderate Pain (4-6) Last Admin: 06/12/19 09:11 Dose: 1 tab Albuterol Sulfate (Albuterol Sulfate) 1.25 mg NEB [id number] PRN PRN Reason: Wheezing Allopurinol (Zyloprim) 100 mg PO BID [facility] Last Admin: 06/12/19 09:07 Dose: 100 mg Aspirin (Ecotrin) 81 mg PO DAILY [facility] Atorvastatin Calcium (Lipitor) 40 mg PO HS [facility] Last Admin: 06/11/19 21:46 Dose: 40 mg Bisacodyl (Dulcolax) 10 mg FL DAILYPRN PRN PRN Reason: Constipation Budesonide (Pulmicort Neb Solution) 0.25 mg INH BID-RT [facility] Carvedilol (Coreg) 12.5 mg PO BID-WM [facility] Last Admin: 06/12/19 09:06 Dose: 12.5 mg Cephalexin (Keflex) 500 mg PO TID [facility] Dextrose/Water (Dextrose 50%) 25 gm SLOW IVP PRN PRN PRN Reason: Hypoglycemia Docusate Sodium (Colace Liquid) 50 mg PO DAILY PRN PRN Reason: CONSTIPATION Docusate Sodium (Colace Liquid) 50 mg PO DAILY [facility] Famotidine (Pepcid) 20 mg SLOW IVP Q12HR [facility] Last Admin: 06/12/19 09:12 Dose: Not Given Famotidine (Pepcid) 20 mg PO BID [facility] Last Admin: 06/12/19 09:12 Dose: Not Given Furosemide (Lasix) 80 mg SLOW IVP 0600,1700 [facility] Last Admin: 06/12/19 05:27 Dose: 80 mg Glucagon (Glucagon) 1 mg IM PRN PRN PRN Reason: Hypoglycemia Hydralazine HCl (Apresoline) 50 mg PO TID [facility] Dextrose/Water (D5w) 1,000 mls @ 0 mls/hr IV .Q0M PRN PRN Reason: Hypoglycemia Insulin Human Lispro (Humalog) 0 units SC .MODERATE SLIDING SC PRN PRN Reason: Moderate Correctional Scale Last Admin: 06/12/19 11:18 Dose: 4 unit Insulin Human Lispro (Humalog) 0 units SC .BEDTIME SLIDING SC PRN PRN Reason: Bedtime Correctional Scale Isosorbide Mononitrate (Imdur Er) 30 mg PO BID [facility] Last Admin: 06/12/19 09:07 Dose: 30 mg Lisinopril (Zestril) 20 mg PO BID [facility] Loratadine (Claritin) 10 mg PO DAILY [facility] Metolazone (Zaroxolyn) 2.5 mg PO 0830 [facility] Last Admin: 06/12/19 09:07 Dose: 2.5 mg Miscellaneous Medication (Pharmacy To Dose) 1 each PO DAILY [facility] Ondansetron HCl (Zofran Odt) 4 mg PO Q6H PRN PRN Reason: Nausea/Vomiting Ondansetron HCl (Zofran) 4 mg IVP Q6H PRN PRN Reason: Nausea/Vomiting Senna/Docusate Sodium (Senokot S) 2 tab PO BID PRN PRN Reason: Constipation Sodium Chloride (Flush - Normal Saline) 10 ml IVF Q12HR [facility] Last Admin: 06/12/19 09:07 Dose: 10 ml Sodium Chloride (Flush - Normal Saline) 10 ml IVF PRN PRN PRN Reason: Saline Flush Last Admin: 06/11/19 17:23 Dose: 10 ml Terazosin HCl (Hytrin) 10 mg PO HS [facility] Last Admin: 06/11/19 21:46 Dose: 10 mg Venlafaxine HCl (Effexor Xr) 150 mg PO QAM [facility] Warfarin Sodium (Coumadin) 2.5 mg PO 1700 [facility] Last Admin: 06/11/19 17:22 Dose: 2.5 mg Vital Signs & Weight: Vital Signs Temp Pulse Pulse Pulse Resp BP BP 06/12/19 13:16 80 82 126/85 137/100 H 06/12/19 11:12 97.3 F L 81 16 06/12/19 07:34 98.3 F 86 16 06/12/19 05:30 97.8 F 90 18 BP Pulse Ox 06/12/19 13:16 06/12/19 11:12 136/94 H 93 L 06/12/19 07:34 171/104 H 93 L 06/12/19 05:30 164/102 H 94 L Admit Weight 269 lb 8 oz Weight 269 lb 8 oz - Physical Exam General: alert & oriented x3 HEENT: mucus membranes moist Neck: supple neck Cardiac: regular rate and rhythm, no murmur Lungs: clear to auscultation Neuro: grossly intact Abdomen: active bowel sounds, soft, non-tender Extremities: 1+ LE edema Skin: clear Musculoskeletal: no pain - Labs Result Diagrams: 06/12/19 04:11 06/12/19 04:11 Troponin/CKMB Troponin I 0.042 ng/mL (< 0.028) H 06/11/19 09:09 - Telemetry Supraventricular conduction: other (V paced.) - Assessment/Plan Assessment/Plan: 1. Acute on chronic systolic CHF 2. AICD in place 3. Aflutter/Afib 99% of the time for last 7 months. 4. Non ischemic CM, normal coronaries per patient report on [facility] done earlier this year. 5. HTN PLAN: - BP better controlled with addition of ACEI. - Continue warfarin for stroke prophylaxis. - Continue IV lasix. May need dobutamine to improve forward flow but will wait one more day.
[2019-06-12] MEDS ORDERED: Non-Formulary Item 1 EACH (Hydralazine Hcl [Hydralazine Hcl] 50 MG) PO SCH (15:00)
[2019-06-12] MEDS: Cephalexin 250 MG CAP PO SCH ×2 (16:03→21:16)
[2019-06-12] MEDS: Warfarin Sodium 2.5 MG TAB PO SCH (16:04)
[2019-06-12] MEDS: hydrALAZINE 25 MG TAB PO SCH ×2 (16:04→21:17)
[2019-06-12] MEDS: Budesonide 0.25 MG/2 ML NEB INH SCH (20:03)
[2019-06-12] MEDS: Terazosin HCl 5 MG CAP PO SCH (21:17)
[2019-06-12] MEDS: Atorvastatin Calcium 40 MG TAB PO SCH (21:17)
[2019-06-12] MEDS: Lisinopril 20 MG TAB PO SCH (21:18)
[2019-06-13] MEDS: HYDROcodone/Acetaminophen 5/325 mg Tablet PO PRN ×2 (03:38→21:36)
[2019-06-13 04:50] LABS: #Eosinphils 0.1 thou/uL (0.0-0.7); #Lymphocytes 0.8 thou/uL (1.20-3.40); #Monocytes 0.8 thou/uL (0.11-0.59); #Neutrophils 3.6 thou/uL (1.40-6.50); %Basophils 0.2 % (0.0-1.0); %Eosinophils 2.3 % (0.0-10.0); %Lymphocytes 15.6 % (21.0-51.0); %Monocytes 14.2 % (0.0-10.0); %Neutrophils 67.7 % (42.0-75.0); Hemoglobin 9.8 g/dL (14.0-18.0); Mean Corpuscular HGB CONC 30.8 g/dL (32.0-36.0); Mean Corpuscular Hemoglobin 24.5 pg (27.0-31.0); Mean Corpuscular Volume 79.4 fL (78.0-98.0); Mean Platelet Volume 9.6 fL (7.4-10.4); Platelet Count 125 thou/uL (130-400); RBC Distribution Width 17.2 % (11.5-14.5); Red Blood Cell (RBC) Count 4.01 mill/uL (4.70-6.10); White Blood Cell (WBC) Count 5.3 thou/uL (4.8-10.8)
[2019-06-13 04:52] LABS: INR-International Normal Ratio 1.5
[2019-06-13 05:11] LABS: Anion Gap 10 mmol/L (10-20); BUN (Urea Nitrogen) 18 mg/dL (8.4-25.7); Calc. Creatinine Clearance 103 mL/min (70-130); Calcium 9.1 mg/dL (7.8-10.44); Carbon Dioxide 35 mmol/L (22-29); Chloride 102 mmol/L (98-107); Estimated GFR-MDRD 67; Glucose 130 mg/dL (70-105); Potassium 3.2 mmol/L (3.5-5.1); Sodium 144 mmol/L (136-145)
[2019-06-13] MEDS: Furosemide 40 MG/4 ML VIAL SLOW IVP SCH ×2 (05:48→16:01)
[2019-06-13] MEDS: Budesonide 0.25 MG/2 ML NEB INH SCH ×2 (06:57→18:49)
[2019-06-13] MEDS: Carvedilol 6.25 MG TAB PO SCH ×2 (08:40→15:59)
[2019-06-13] MEDS: Docusate Sodium 100 MG/10 ML UDCUP PO SCH (08:41)
[2019-06-13] MEDS: Metolazone 2.5 MG TAB PO SCH (08:41)
[2019-06-13] MEDS: Cephalexin 250 MG CAP PO SCH (08:41)
[2019-06-13] MEDS: Allopurinol 100 MG TAB PO SCH ×2 (08:41→21:37)
[2019-06-13] MEDS: Aspirin 81 mg Enteric Coated Tablet PO SCH (08:41)
[2019-06-13] MEDS: Isosorbide Mononitrate (ER) 30 MG TAB PO SCH ×2 (08:42→21:36)
[2019-06-13] MEDS: Famotidine 20 MG TAB PO SCH ×2 (08:42→21:35)
[2019-06-13] MEDS: Loratadine 10 MG TAB PO SCH (08:42)
[2019-06-13] MEDS: Lisinopril 20 MG TAB PO SCH ×2 (08:42→21:36)
[2019-06-13] MEDS: Venlafaxine HCl XR 150 MG CAP PO SCH (08:43)
[2019-06-13] MEDS: hydrALAZINE 25 MG TAB PO SCH ×3 (08:43→21:36)
[2019-06-13] MEDS ORDERED: Loratadine 10 MG TAB PO SCH (09:00)
[2019-06-13] MEDS ORDERED: DOCUSATE SODIUM 50 MG PO SCH (09:00)
[2019-06-13] MEDS ORDERED: Potassium Chloride 20 MEQ TAB PO SCH (10:00)
[2019-06-13] MEDS ORDERED: Linezolid 600 MG TAB PO SCH (10:00)
--- NOTE | 2019-06-13 10:09 | PDOC.HOSPP ---
- Subjective Encounter Date: 06/13/19 (f/u heart failure) Encounter Time: 10:07 Subjective: Pt c/o swelling in scrotum and penis - unchanged since yesterday. Had some pain earlier. Has a smith cath in place for urinary obstruction on admission - UOP is 3L. Denies any chest pain. he thinks the swelling is a little better in legs today, appetite is improving. - Objective Vital Signs & Weight: Vital Signs (12 hours) Temp Pulse Resp BP Pulse Ox 06/13/19 07:06 97.8 F 80 16 128/94 H 99 06/13/19 03:16 97.9 F 84 18 136/89 94 L 06/13/19 00:00 98.1 F 80 20 140/83 93 L Weight Admit Weight 269 lb 8 oz Weight 267 lb 11.2 oz I&O: 06/12/19 06/13/19 06/14/19 06:59 06:59 06:59 Intake Total 1040 1320 Output Total 4540 5900 Balance -3500 -4580 Result Diagrams: 06/13/19 04:19 06/13/19 04:19 Additional Labs: Accuchecks 06/13/19 06/12/19 06/12/19 05:53 20:25 16:34 POC Glucose 134 H 106 101 06/12/19 10:13 POC Glucose 202 H EKG Reviewed by me: Yes (tele - a flutter vpaced rate 70's) Hospitalist ROS - Medication Medications: Active Medications Generic Name Dose Route Start Last Admin Trade Name Freq PRN Reason Stop Dose Admin Hydrocodone Bitart/Acetaminophen 1 tab 06/11/19 08:45 06/13/19 03:38 [place] 5/325 PO 1 tab Q4H PRN Administration Moderate Pain (4-6) Allopurinol 100 mg 06/11/19 21:00 06/13/19 08:41 Zyloprim PO 100 mg BID ARTURO Administration Aspirin 81 mg 06/13/19 09:00 06/13/19 08:41 Ecotrin PO 81 mg DAILY ARTURO Administration Atorvastatin Calcium 40 mg 06/11/19 21:00 06/12/19 21:17 Lipitor PO 40 mg HS ARTURO Administration Budesonide 0.25 mg 06/12/19 18:30 06/13/19 06:57 Pulmicort Neb Solution INH 0.25 mg BID-RT ARTURO Administration Carvedilol 12.5 mg 06/11/19 17:00 06/13/19 08:40 Coreg PO 12.5 mg BID-WM ARTURO Administration Docusate Sodium 50 mg 06/13/19 09:00 06/13/19 08:41 Colace Liquid PO 50 mg DAILY ARTURO Administration Famotidine 20 mg 06/11/19 09:00 06/13/19 08:42 Pepcid PO 20 mg BID ARTURO Administration Furosemide 80 mg 06/11/19 17:00 06/13/19 05:48 Lasix SLOW IVP 80 mg 0600,1700 ARTURO Administration Hydralazine HCl 50 mg 06/12/19 15:00 06/13/19 08:43 Apresoline PO 50 mg TID ARTURO Administration Insulin Human Lispro 0 units 06/11/19 08:45 06/12/19 11:18 Humalog SC 4 unit .MODERATE SLIDING SC PRN Administration Moderate Correctional Scale Isosorbide Mononitrate 30 mg 06/11/19 21:00 06/13/19 08:42 Imdur Er PO 30 mg BID ARTURO Administration Lisinopril 20 mg 06/12/19 21:00 06/13/19 08:42 Zestril PO 20 mg BID ATRURO Administration Loratadine 10 mg 06/13/19 09:00 06/13/19 08:42 Claritin PO 10 mg DAILY ARTURO Administration Metolazone 2.5 mg 06/12/19 08:30 06/13/19 08:41 Zaroxolyn PO 2.5 mg 0830 ARTURO Administration Miscellaneous Medication 1 each 06/13/19 09:00 06/13/19 08:50 Pharmacy To Dose PO Not Given DAILY ARTURO Sodium Chloride 10 ml 06/11/19 21:00 06/13/19 08:43 Flush - Normal Saline IVF 10 ml Q12HR ARTURO Administration Sodium Chloride 10 ml 06/11/19 09:01 06/11/19 17:23 Flush - Normal Saline IVF 10 ml PRN PRN Administration Saline Flush Terazosin HCl 10 mg 06/11/19 21:00 06/12/19 21:17 Hytrin PO 10 mg HS ARTURO Administration Venlafaxine HCl 150 mg 06/13/19 09:00 06/13/19 08:43 Effexor Xr PO 150 mg QAM [facility]O Administration Warfarin Sodium 2.5 mg 06/11/19 17:00 06/12/19 16:04 Coumadin PO 2.5 mg 1700 ARTURO Administration - Exam General Appearance: NAD Heart: RRR, no murmur Respiratory: CTAB, no wheezes, no rales, no ronchi Gastrointestinal: soft, non-tender, non-distended, normal bowel sounds Gastrointestinal - other findings: - edema of penis, scrotum, both soft and without erythema Skin - other findings: stage 2 ulcer with clean base, no surrounding erythema Psychiatric: normal affect, A&O x 3 Hosp A/P (1) Acute on chronic combined systolic (congestive) and diastolic (congestive) heart failure Code(s): I50.43 - ACUTE ON CHRONIC COMBINED SYSTOLIC AND DIASTOLIC HRT FAIL Status: Acute (2) Anemia Code(s): D64.9 - ANEMIA, UNSPECIFIED Status: Chronic (3) CKD (chronic kidney disease) stage 2, GFR 60-89 ml/min Code(s): N18.2 - CHRONIC KIDNEY DISEASE, STAGE 2 (MILD) Status: Chronic (4) Diabetes mellitus, type II, insulin dependent Code(s): E11.9 - TYPE 2 DIABETES MELLITUS WITHOUT COMPLICATIONS; Z79.4 - TOE LASTER (CURRENT) USE OF INSULIN Status: Chronic (5) HLD (hyperlipidemia) Code(s): E78.5 - HYPERLIPIDEMIA, UNSPECIFIED Status: Chronic Qualifiers: (6) HTN (hypertension) Code(s): I10 - ESSENTIAL (PRIMARY) HYPERTENSION Status: Chronic Qualifiers: (7) Skin ulcer Code(s): L98.499 - NON-PRESSURE CHRONIC ULCER OF SKIN OF SITES W UNSP SEVERITY Status: Acute - Plan HF - appreciate Cardiology consult, continue diuresis and consult to EP for chronic a flutter - consider dobutamine - ef 20-25% with global hypokinesis - replace potassium chronic a flutter - rate controlled, on warfarin and sub-therapeutic. request for pharmacy to dose coumadin - INR 1.5 HTn - bp improved with addition of byron-i, hydralazine yesterday and continuing diuresis and beta-wendy and long-acting nitrate anxiety/depression - resume home effexor COPD hx - compensated - continue pulmicort and albuterol here ckd stage 2 -stable, monitor anemia - s/p IV iron skin ulcer -wound cx today shows MRSA - change to oral linezolid smith catheter in place for urinary obstruction on admission - due to penile swelling will leave in place until tomorrow and see if swelling improves, and plan to remove with voiding trial dvt prophy - on coumadin with pharmacy to dose gi prophy - not indicated code status full pt remains at high risk in current condition reviewed plan of care with patient, no questions or further needs at end of eval
[2019-06-13] MEDS: Potassium Chloride 20 MEQ TAB PO SCH (15:59)
[2019-06-13] MEDS: Warfarin Sodium 5 MG TAB PO SCH (16:00)
--- NOTE | 2019-06-13 17:40 | PDOC.CPN ---
- Subjective Date: 06/13/19 Time: 17:39 Interval history: He has diuresed very well. He grew out MRSA from an ulcer on the back. He has diuresed about 3L today but only has lost 10 pounds total . - Review of Systems General: denies: fever/chills, weight/appetite/sleep changes, night sweats, fatigue Respiratory: denies: cough, congestion, shortness of breath, exercise intolerance Cardiovascular: denies: chest pain, palpitation, edema, paroxysmal nocturnal dyspnea, orthopnea Gastrointestinal: denies: nausea, vomiting, diarrhea, constipation, abd pain, GI bleeding Musculoskeletal: denies: pain, tenderness, stiffness, swelling, arthritis/ arthralgias Neurological: denies: numbness, syncope, seizure, weakness - Objective Allergies/Adverse Reactions: Allergies Allergy/AdvReac Type Severity Reaction Status Date / Time No Known Allergies Allergy Unverified 06/11/19 08:07 Visit Medications: Current Medications Acetaminophen (Tylenol) 650 mg PO Q4H PRN PRN Reason: Headache/Fever/Mild Pain (1-3) Hydrocodone Bitart/Acetaminophen ([place] 5/325) 1 tab PO Q4H PRN PRN Reason: Moderate Pain (4-6) Last Admin: 06/13/19 03:38 Dose: 1 tab Albuterol Sulfate (Albuterol Sulfate) 1.25 mg NEB [id number] PRN PRN Reason: Wheezing Allopurinol (Zyloprim) 100 mg PO BID [facility] Last Admin: 06/13/19 08:41 Dose: 100 mg Aspirin (Ecotrin) 81 mg PO DAILY [facility] Last Admin: 06/13/19 08:41 Dose: 81 mg Atorvastatin Calcium (Lipitor) 40 mg PO HS [facility] Last Admin: 06/12/19 21:17 Dose: 40 mg Bisacodyl (Dulcolax) 10 mg NM DAILYPRN PRN PRN Reason: Constipation Budesonide (Pulmicort Neb Solution) 0.25 mg INH BID-RT [facility] Last Admin: 06/13/19 06:57 Dose: 0.25 mg Carvedilol (Coreg) 12.5 mg PO BID-WM [facility] Last Admin: 06/13/19 15:59 Dose: 12.5 mg Dextrose/Water (Dextrose 50%) 25 gm SLOW IVP PRN PRN PRN Reason: Hypoglycemia Docusate Sodium (Colace Liquid) 50 mg PO DAILY PRN PRN Reason: CONSTIPATION Docusate Sodium (Colace Liquid) 50 mg PO DAILY [facility] Last Admin: 06/13/19 08:41 Dose: 50 mg Famotidine (Pepcid) 20 mg PO BID [facility] Last Admin: 06/13/19 08:42 Dose: 20 mg Furosemide (Lasix) 80 mg SLOW IVP 0600,1700 [facility] Last Admin: 06/13/19 16:01 Dose: 80 mg Glucagon (Glucagon) 1 mg IM PRN PRN PRN Reason: Hypoglycemia Hydralazine HCl (Apresoline) 50 mg PO TID [facility] Last Admin: 06/13/19 16:00 Dose: 50 mg Dextrose/Water (D5w) 1,000 mls @ 0 mls/hr IV .Q0M PRN PRN Reason: Hypoglycemia Insulin Human Lispro (Humalog) 0 units SC .MODERATE SLIDING SC PRN PRN Reason: Moderate Correctional Scale Last Admin: 06/12/19 11:18 Dose: 4 unit Insulin Human Lispro (Humalog) 0 units SC .BEDTIME SLIDING SC PRN PRN Reason: Bedtime Correctional Scale Isosorbide Mononitrate (Imdur Er) 30 mg PO BID [facility] Last Admin: 06/13/19 08:42 Dose: 30 mg Linezolid (Zyvox) 600 mg PO Q12HR [facility] Lisinopril (Zestril) 20 mg PO BID [facility] Last Admin: 06/13/19 08:42 Dose: 20 mg Loratadine (Claritin) 10 mg PO DAILY [facility] Last Admin: 06/13/19 08:42 Dose: 10 mg Metolazone (Zaroxolyn) 2.5 mg PO 0830 [facility] Last Admin: 06/13/19 08:41 Dose: 2.5 mg Miscellaneous Medication (Pharmacy To Dose) 1 each PO DAILY [facility] Last Admin: 06/13/19 08:50 Dose: Not Given Ondansetron HCl (Zofran Odt) 4 mg PO Q6H PRN PRN Reason: Nausea/Vomiting Ondansetron HCl (Zofran) 4 mg IVP Q6H PRN PRN Reason: Nausea/Vomiting Potassium Chloride (K-Dur) 40 meq PO BID[facility] Last Admin: 06/13/19 15:59 Dose: 40 meq Senna/Docusate Sodium (Senokot S) 2 tab PO BID PRN PRN Reason: Constipation Sodium Chloride (Flush - Normal Saline) 10 ml IVF Q12HR [facility] Last Admin: 06/13/19 08:43 Dose: 10 ml Sodium Chloride (Flush - Normal Saline) 10 ml IVF PRN PRN PRN Reason: Saline Flush Last Admin: 06/11/19 17:23 Dose: 10 ml Terazosin HCl (Hytrin) 10 mg PO HS [facility] Last Admin: 06/12/19 21:17 Dose: 10 mg Venlafaxine HCl (Effexor Xr) 150 mg PO QAM [facility] Last Admin: 06/13/19 08:43 Dose: 150 mg Warfarin Sodium (Coumadin) 5 mg PO 1700 [facility] Last Admin: 06/13/19 16:00 Dose: 5 mg Vital Signs & Weight: Vital Signs Temp Pulse Resp BP Pulse Ox 06/13/19 15:03 97.8 F 80 16 132/94 H 92 L 06/13/19 11:44 97.5 F L 85 18 126/65 96 06/13/19 07:06 97.8 F 80 16 128/94 H 99 Admit Weight 269 lb 8 oz Weight 267 lb 11.2 oz - Physical Exam General: alert & oriented x3 HEENT: mucus membranes moist, normocephaly Neck: supple neck, midline trachea Cardiac: regular rate and rhythm, no murmur Lungs: normal breath sounds Neuro: grossly intact Abdomen: active bowel sounds, soft, non-tender Extremities: 1+ LE edema Skin: clear Musculoskeletal: no pain - Labs Result Diagrams: 06/13/19 04:19 06/13/19 04:19 Troponin/CKMB Troponin I 0.042 ng/mL (< 0.028) H 06/11/19 09:09 - Telemetry Supraventricular conduction: other (V paced.) - Assessment/Plan Assessment/Plan: 1. Acute on chronic systolic CHF 2. AICD in place 3. Aflutter/Afib 99% of the time for last 7 months. 4. Non ischemic CM, normal coronaries per patient report on [facility] done earlier this year. 5. HTN PLAN: - BP better controlled with addition of ACEI. - Continue warfarin for stroke prophylaxis. - Continue IV lasix. He is about 11L out in last 3 days. Continue current dose IV lasix. - EP following, possible ablation.
[2019-06-13] MEDS: Terazosin HCl 5 MG CAP PO SCH (21:35)
[2019-06-13] MEDS: Linezolid 600 MG TAB PO SCH (21:36)
[2019-06-13] MEDS: Atorvastatin Calcium 40 MG TAB PO SCH (21:37)
[2019-06-14] MEDS ORDERED: HYDROcodone/Acetaminophen 5/325 mg Tablet ONE (05:29)
[2019-06-14] MEDS ORDERED: Furosemide 40 MG/4 ML VIAL ONE (05:29)
[2019-06-14] MEDS ORDERED: Budesonide 0.25 MG/2 ML NEB ONE (07:23)
[2019-06-14] MEDS: Budesonide 0.25 MG/2 ML NEB INH SCH ×2 (07:56→18:07)
[2019-06-14] MEDS: Loratadine 10 MG TAB PO SCH ×2 (10:08→14:57)
[2019-06-14] MEDS: Aspirin 81 mg Enteric Coated Tablet PO SCH ×2 (10:08→14:54)
[2019-06-14] MEDS: Isosorbide Mononitrate (ER) 30 MG TAB PO SCH ×2 (10:10→14:56)
[2019-06-14] MEDS: Potassium Chloride 20 MEQ TAB PO SCH ×3 (10:12→18:17)
[2019-06-14] MEDS: Famotidine 20 MG TAB PO SCH ×3 (10:12→20:47)
[2019-06-14] MEDS: Metolazone 2.5 MG TAB PO SCH ×2 (10:14→14:53)
[2019-06-14] MEDS: Linezolid 600 MG TAB PO SCH ×3 (10:15→20:46)
[2019-06-14] MEDS: Allopurinol 100 MG TAB PO SCH ×3 (10:16→20:46)
[2019-06-14] MEDS: Carvedilol 6.25 MG TAB PO SCH ×3 (11:50→18:18)
[2019-06-14] MEDS: Venlafaxine HCl XR 150 MG CAP PO SCH ×2 (11:50→14:58)
[2019-06-14] MEDS: Acetaminophen 325 MG TAB PO PRN ×2 (11:50→20:44)
--- NOTE | 2019-06-14 14:37 | CON ---
DATE OF CONSULTATION: REQUESTING PHYSICIAN: Dr. Salcido. REASON FOR REQUEST: Atrial fibrillation. HISTORY OF PRESENT ILLNESS: Mr. Chandler is a 58-year-old gentleman, who is an inmate, who is admitted to the hospital with congestive heart failure. He was also hospitalized a couple of months ago. He was noted to be in atrial fibrillation at that time and was placed on anticoagulation with Coumadin. He reports he does have some palpitations, but his main issue is heart failure and is currently getting diuresed. PAST MEDICAL HISTORY: Significant for systolic congestive heart failure, hypertension, atrial fibrillation, ICD in situ, COPD and coronary artery disease. MEDICATIONS: Include; 1. Aspirin. 2. Lipitor. 3. Calcium. 4. Coreg. 5. Iron. 6. Flovent. 7. Lasix. 8. Isosorbide. 9. Lisinopril. 10. Metformin. 11. Bactrim. 12. Terazosin. 13. Coumadin by report. FAMILY HISTORY: Reveals no early sudden cardiac . SOCIAL HISTORY: He does not drink, currently smoke. He quit smoking less than 10 years ago. REVIEW OF SYSTEMS: Reviewed. He denies nausea, vomiting, diarrhea, fever, chills, or change in vision or hearing. All others were negative other than included in the HPI. PHYSICAL EXAMINATION: VITAL SIGNS: Pulse is 89, blood pressure is 148/84. HEENT: Pupils are equal, round, and reactive to light and accommodation. Extraocular movements are intact. Nose; midline septum. There is no rhinorrhea or epistaxis. Throat is moist. No erythema or exudate. NECK: Supple without lymphadenopathy or goiter. There is JVD at 12 cm at 20 degrees. HEART: Irregular rate. Irregular rhythm. Grade 2/6 holosystolic murmur at the apex and axilla. LUNGS: Reveal rales bilaterally. ABDOMEN: Soft, nontender, and nondistended. Positive bowel sounds. EXTREMITIES: Without cyanosis or clubbing. There is 2+ edema to the mid-pabon. NEUROLOGIC: Cranial nerves II through XII are grossly intact. Motor strength is 5/5 throughout. DIAGNOSTICS: Electrocardiogram, atrial fibrillation with controlled ventricular response. Device interrogation reveals atrial fibrillation for 2 months. He is 8.7 months until ANNETTE. IMPRESSION: 1. Persistent atrial fibrillation. 2. Systolic congestive heart failure. 3. Coronary artery disease. 4. Dual-chamber implantable cardioverter-defibrillator in situ. RECOMMENDATIONS: Mr. Chandler has persistent atrial fibrillation. I would recommend consideration of a cardioversion if he has had therapeutic anticoagulation for a month and then cardioversion can be performed. Otherwise, he will require a RADHA cardioversion. Consideration to amiodarone can be given for further AFib prevention. After optimization, outpatient atrial fibrillation ablation could be considered if he fails medical therapy. Job ID: [id number]
[2019-06-14] MEDS: Furosemide 40 MG/4 ML VIAL SLOW IVP SCH ×2 (14:52→18:12)
[2019-06-14] MEDS: Docusate Sodium 100 MG/10 ML UDCUP PO SCH ×2 (14:55→20:45)
[2019-06-14] MEDS: hydrALAZINE 25 MG TAB PO SCH ×2 (14:55→15:59)
[2019-06-14] MEDS: Lisinopril 20 MG TAB PO SCH (14:57)
--- NOTE | 2019-06-14 14:58 | PDOC.HOSPP ---
- Subjective Encounter Date: 06/14/19 (f/u heart failure) Encounter Time: 14:56 Subjective: 58 y/o male now on HD 4 for acute decompensated systolic and diastolic HF with EF 20-25%, chronic atrial fibrillation/flutter that is rate controlled, undergoing diuresis. Pt with urinary retention on admission, has a smith catheter in place that remains due to large UOP associated with diuresis. Pt reports feeling better today - feels like swelling in legs and abd is improved. Denies any chest pain or difficulty breathing. Swelling in area improved. No recent BM. - Objective Vital Signs & Weight: Vital Signs (12 hours) Temp Pulse Pulse Pulse Resp BP BP 06/14/19 10:34 89 84 111/72 105/72 06/14/19 08:25 98.3 F 80 18 BP Pulse Ox 06/14/19 10:34 06/14/19 08:25 105/70 95 Weight Admit Weight 269 lb 8 oz Weight 267 lb 11.2 oz I&O: 06/13/19 06/14/19 06/15/19 06:59 06:59 06:59 Intake Total 1320 720 Output Total 5900 1551 1300 Balance -4580 -3405 -1300 Result Diagrams: 06/13/19 04:19 06/14/19 04:30 Additional Labs: Accuchecks 06/14/19 06/14/19 06/13/19 10:40 05:47 20:52 POC Glucose 167 H 121 H 151 H 06/13/19 16:54 POC Glucose 130 H chem today 144/101/36/16/1.26/122 Ca 9.2, Mag 1.88 INR EKG Reviewed by me: Yes (v paced with a flutter rate 70's) Hospitalist ROS - Medication Medications: Active Medications Generic Name Dose Route Start Last Admin Trade Name Freq PRN Reason Stop Dose Admin Hydrocodone Bitart/Acetaminophen 1 tab 06/11/19 08:45 06/13/19 21:36 [place] 5/325 PO 1 tab Q4H PRN Administration Moderate Pain (4-6) Allopurinol 100 mg 06/11/19 21:00 06/13/19 21:37 Zyloprim PO 100 mg BID [facility] Administration Aspirin 81 mg 06/13/19 09:00 06/13/19 08:41 Ecotrin PO 81 mg DAILY [facility] Administration Atorvastatin Calcium 40 mg 06/11/19 21:00 06/13/19 21:37 Lipitor PO 40 mg HS [facility] Administration Budesonide 0.25 mg 06/12/19 18:30 06/14/19 07:56 Pulmicort Neb Solution INH 0.25 mg BID-RT [facility] Administration Carvedilol 12.5 mg 06/11/19 17:00 06/13/19 15:59 Coreg PO 12.5 mg BID-WM [facility] Administration Famotidine 20 mg 06/11/19 09:00 06/13/19 21:35 Pepcid PO 20 mg BID [facility] Administration Furosemide 80 mg 06/11/19 17:00 06/13/19 16:01 Lasix SLOW IVP 80 mg 0600,1700 [facility] Administration Hydralazine HCl 50 mg 06/12/19 15:00 06/13/19 21:36 Apresoline PO 50 mg TID [facility] Administration Insulin Human Lispro 0 units 06/11/19 08:45 06/12/19 11:18 Humalog SC 4 unit .MODERATE SLIDING SC PRN Administration Moderate Correctional Scale Isosorbide Mononitrate 30 mg 06/11/19 21:00 06/13/19 21:36 Imdur Er PO 30 mg BID [facility] Administration Linezolid 600 mg 06/13/19 21:00 06/13/19 21:36 Zyvox PO 600 mg Q12HR [facility] Administration Lisinopril 20 mg 06/12/19 21:00 06/13/19 21:36 Zestril PO 20 mg BID [facility] Administration Loratadine 10 mg 06/13/19 09:00 06/13/19 08:42 Claritin PO 10 mg DAILY [facility] Administration Metolazone 2.5 mg 06/12/19 08:30 06/13/19 08:41 Zaroxolyn PO 2.5 mg 0830 [facility] Administration Miscellaneous Medication 1 each 06/13/19 09:00 06/13/19 08:50 Pharmacy To Dose PO Not Given DAILY [facility] Potassium Chloride 40 meq 06/13/19 17:00 06/13/19 15:59 K-Dur PO 40 meq BID-WM [facility] Administration Sodium Chloride 10 ml 06/11/19 21:00 06/13/19 21:37 Flush - Normal Saline IVF 10 ml Q12HR [facility] Administration Sodium Chloride 10 ml 06/11/19 09:01 06/11/19 17:23 Flush - Normal Saline IVF 10 ml PRN PRN Administration Saline Flush Terazosin HCl 10 mg 06/11/19 21:00 06/13/19 21:35 Hytrin PO 10 mg HS [facility] Administration Venlafaxine HCl 150 mg 06/13/19 09:00 06/13/19 08:43 Effexor Xr PO 150 mg QAM [facility] Administration Warfarin Sodium 5 mg 06/13/19 17:00 06/13/19 16:00 Coumadin PO 5 mg 1700 [facility] Administration - Exam General Appearance: NAD Heart: RRR, no murmur Respiratory: CTAB, no wheezes, no rales, no ronchi Gastrointestinal: soft, non-tender, non-distended, normal bowel sounds Extremities - other findings: 1+ pitting edema with hyperpigmenation Skin - other findings: Edema of penis and scrotum - appears slightly improved Hosp A/P (1) Acute on chronic combined systolic (congestive) and diastolic (congestive) heart failure Code(s): I50.43 - ACUTE ON CHRONIC COMBINED SYSTOLIC AND DIASTOLIC HRT FAIL Status: Acute (2) Anemia Code(s): D64.9 - ANEMIA, UNSPECIFIED Status: Chronic (3) CKD (chronic kidney disease) stage 2, GFR 60-89 ml/min Code(s): N18.2 - CHRONIC KIDNEY DISEASE, STAGE 2 (MILD) Status: Chronic (4) Diabetes mellitus, type II, insulin dependent Code(s): E11.9 - TYPE 2 DIABETES MELLITUS WITHOUT COMPLICATIONS; Z79.4 - [employer] (CURRENT) USE OF INSULIN Status: Chronic (5) HLD (hyperlipidemia) Code(s): E78.5 - HYPERLIPIDEMIA, UNSPECIFIED Status: Chronic Qualifiers: (6) HTN (hypertension) Code(s): I10 - ESSENTIAL (PRIMARY) HYPERTENSION Status: Chronic Qualifiers: (7) Skin ulcer Code(s): L98.499 - NON-PRESSURE CHRONIC ULCER OF SKIN OF SITES W UNSP SEVERITY Status: Acute - Plan HF - appreciate Cardiology consult, continue diuresis and consult to EP for chronic a flutter - ef 20-25% with global hypokinesis - continue to replace potassium chronic a flutter - rate controlled, on warfarin and sub-therapeutic, EP evaluation recommends consideration of cardioversion HTN - bp's on low side overnight and today - d/c hydralazine - lower carvedilol and lisinopril - change imdur to once daily with hold parameters anxiety/depression - resume home effexor COPD hx - compensated - continue pulmicort and albuterol here ckd stage 2 -stable, monitor anemia - s/p IV iron skin ulcer -wound cx today shows MRSA and pt started on linezolid yesterday. Today cx shows acinetobacter - will consult ID for determination of abx. smith catheter in place for urinary obstruction on admission, anticipate this can be removed tomorrow. Pt continues to have large volume UOP with lasix and metolazone. schedule and prn bowel meds dvt prophy - on coumadin with pharmacy to dose. INR has not been drawn today - ordered now, pharmacy aware. gi prophy - not indicated code status full pt remains at high risk in current condition reviewed plan of care with patient, no questions or further needs at end of eval anticipate a few days from discharge as still on IV lasix and need to determine if intervention for a fib/flutter will be performed.
[2019-06-14 16:18] LABS: INR-International Normal Ratio 1.3; Prothrombin Time 16.2 SEC (12.0-14.7)
[2019-06-14] MEDS: Warfarin Sodium 5 MG TAB PO SCH (18:19)
--- NOTE | 2019-06-14 18:21 | PDOC.CPN ---
- Subjective Date: 06/14/19 Time: 18:19 Interval history: No new issues. Breathing back to baseline. - Review of Systems General: denies: fever/chills, weight/appetite/sleep changes, night sweats, fatigue Respiratory: denies: cough, congestion, shortness of breath, exercise intolerance Cardiovascular: denies: chest pain, palpitation, edema, paroxysmal nocturnal dyspnea, orthopnea Gastrointestinal: denies: nausea, vomiting, diarrhea, constipation, abd pain, GI bleeding Musculoskeletal: denies: pain, tenderness, stiffness, swelling, arthritis/ arthralgias Neurological: denies: numbness, syncope, seizure, weakness - Objective Allergies/Adverse Reactions: Allergies Allergy/AdvReac Type Severity Reaction Status Date / Time No Known Allergies Allergy Unverified 06/11/19 08:07 Visit Medications: Current Medications Acetaminophen (Tylenol) 650 mg PO Q4H PRN PRN Reason: Headache/Fever/Mild Pain (1-3) Hydrocodone Bitart/Acetaminophen ([place] 5/325) 1 tab PO Q4H PRN PRN Reason: Moderate Pain (4-6) Last Admin: 06/13/19 21:36 Dose: 1 tab Albuterol Sulfate (Albuterol Sulfate) 1.25 mg NEB [id number] PRN PRN Reason: Wheezing Allopurinol (Zyloprim) 100 mg PO BID [facility] Last Admin: 06/14/19 14:54 Dose: Not Given Aspirin (Ecotrin) 81 mg PO DAILY [facility] Last Admin: 06/14/19 14:54 Dose: Not Given Atorvastatin Calcium (Lipitor) 40 mg PO HS [facility] Last Admin: 06/13/19 21:37 Dose: 40 mg Bisacodyl (Dulcolax) 10 mg NE DAILYPRN PRN PRN Reason: Constipation Budesonide (Pulmicort Neb Solution) 0.25 mg INH BID-RT [facility] Last Admin: 06/14/19 18:07 Dose: 0.25 mg Carvedilol (Coreg) 6.25 mg PO BID-WM [facility] Dextrose/Water (Dextrose 50%) 25 gm SLOW IVP PRN PRN PRN Reason: Hypoglycemia Docusate Sodium (Colace Liquid) 50 mg PO DAILY PRN PRN Reason: CONSTIPATION Docusate Sodium (Colace Liquid) 100 mg PO BID [facility] Famotidine (Pepcid) 20 mg PO BID [facility] Last Admin: 06/14/19 14:55 Dose: Not Given Furosemide (Lasix) 80 mg SLOW IVP 0600,1700 [facility] Last Admin: 06/14/19 14:52 Dose: Not Given Glucagon (Glucagon) 1 mg IM PRN PRN PRN Reason: Hypoglycemia Dextrose/Water (D5w) 1,000 mls @ 0 mls/hr IV .Q0M PRN PRN Reason: Hypoglycemia Insulin Human Lispro (Humalog) 0 units SC .MODERATE SLIDING SC PRN PRN Reason: Moderate Correctional Scale Last Admin: 06/12/19 11:18 Dose: 4 unit Insulin Human Lispro (Humalog) 0 units SC .BEDTIME SLIDING SC PRN PRN Reason: Bedtime Correctional Scale Isosorbide Mononitrate (Imdur Er) 30 mg PO DAILY [facility] Linezolid (Zyvox) 600 mg PO Q12HR [facility] Last Admin: 06/14/19 14:56 Dose: Not Given Lisinopril (Zestril) 20 mg PO DAILY [facility] Loratadine (Claritin) 10 mg PO DAILY [facility] Last Admin: 06/14/19 14:57 Dose: Not Given Metolazone (Zaroxolyn) 2.5 mg PO 0830 [facility] Last Admin: 06/14/19 14:53 Dose: Not Given Miscellaneous Medication (Pharmacy To Dose) 1 each PO DAILY [facility] Last Admin: 06/14/19 14:57 Dose: Not Given Ondansetron HCl (Zofran Odt) 4 mg PO Q6H PRN PRN Reason: Nausea/Vomiting Ondansetron HCl (Zofran) 4 mg IVP Q6H PRN PRN Reason: Nausea/Vomiting Polyethylene Glycol (Miralax) 17 gm PO DAILY [facility] Potassium Chloride (K-Dur) 40 meq PO BID-[facility] Last Admin: 06/14/19 14:54 Dose: Not Given Senna/Docusate Sodium (Senokot S) 2 tab PO BID PRN PRN Reason: Constipation Sodium Chloride (Flush - Normal Saline) 10 ml IVF Q12HR [facility] Last Admin: 06/14/19 14:58 Dose: Not Given Sodium Chloride (Flush - Normal Saline) 10 ml IVF PRN PRN PRN Reason: Saline Flush Last Admin: 06/11/19 17:23 Dose: 10 ml Terazosin HCl (Hytrin) 10 mg PO HS [facility] Last Admin: 06/13/19 21:35 Dose: 10 mg Venlafaxine HCl (Effexor Xr) 150 mg PO QAM [facility] Last Admin: 06/14/19 14:58 Dose: Not Given Warfarin Sodium (Coumadin) 5 mg PO 1700 [facility] Last Admin: 06/13/19 16:00 Dose: 5 mg Vital Signs & Weight: Vital Signs Temp Pulse Pulse Pulse Resp BP BP 06/14/19 18:07 68 16 06/14/19 15:59 105/70 06/14/19 15:47 97.6 F 80 20 06/14/19 14:57 105/70 06/14/19 14:55 80 06/14/19 14:52 105/70 06/14/19 10:34 89 84 111/72 06/14/19 08:25 98.3 F 80 18 BP BP Pulse Ox 06/14/19 18:07 98 06/14/19 15:59 06/14/19 15:47 108/73 100 06/14/19 14:57 06/14/19 14:55 06/14/19 14:52 06/14/19 10:34 105/72 06/14/19 08:25 105/70 95 Admit Weight 269 lb 8 oz Weight 267 lb 11.2 oz - Physical Exam General: alert & oriented x3 HEENT: mucus membranes moist Neck: supple neck Cardiac: regular rate and rhythm Lungs: clear to auscultation Neuro: grossly intact Abdomen: active bowel sounds Extremities: no edema Skin: clear Musculoskeletal: no pain - Labs Result Diagrams: 06/13/19 04:19 06/13/19 04:19 Troponin/CKMB Troponin I 0.042 ng/mL (< 0.028) H 06/11/19 09:09 - Telemetry Supraventricular conduction: other (V paced.) - Assessment/Plan Assessment/Plan: 1. Acute on chronic systolic CHF 2. AICD in place 3. Aflutter/Afib 99% of the time for last 7 months. 4. Non ischemic CM, normal coronaries per patient report on [facility] done earlier this year. 5. HTN PLAN: - Swith to PO Lasix - EP plans on cardioversion.
[2019-06-14 19:57] LABS: Anion Gap 11 mmol/L (10-20); BUN (Urea Nitrogen) 16 mg/dL (8.4-25.7); Calc. Creatinine Clearance 107 mL/min (70-130); Calcium 9.2 mg/dL (7.8-10.44); Carbon Dioxide 36 mmol/L (22-29); Chloride 101 mmol/L (98-107); Estimated GFR-MDRD 71; Glucose 122 mg/dL (70-105); Magnesium 1.9 mg/dL (1.6-2.6); Potassium 3.5 mmol/L (3.5-5.1); Sodium 144 mmol/L (136-145)
[2019-06-14] MEDS: Terazosin HCl 5 MG CAP PO SCH (20:44)
[2019-06-14] MEDS: Atorvastatin Calcium 40 MG TAB PO SCH (20:46)
[2019-06-15] MEDS: HYDROcodone/Acetaminophen 5/325 mg Tablet PO PRN ×3 (02:11→20:31)
[2019-06-15 05:40] LABS: INR-International Normal Ratio 1.3
[2019-06-15 06:10] LABS: Anion Gap 11 mmol/L (10-20); BUN (Urea Nitrogen) 17 mg/dL (8.4-25.7); Calc. Creatinine Clearance 112 mL/min (70-130); Calcium 9.1 mg/dL (7.8-10.44); Carbon Dioxide 36 mmol/L (22-29); Chloride 99 mmol/L (98-107); Estimated GFR-MDRD 74; Glucose 107 mg/dL (70-105); Potassium 3.3 mmol/L (3.5-5.1); Sodium 143 mmol/L (136-145)
[2019-06-15] MEDS: Furosemide 40 MG/4 ML VIAL SLOW IVP SCH (06:14)
[2019-06-15] MEDS: Budesonide 0.25 MG/2 ML NEB INH SCH ×2 (07:06→18:33)
[2019-06-15] MEDS: Allopurinol 100 MG TAB PO SCH ×2 (09:24→20:32)
[2019-06-15] MEDS: Metolazone 2.5 MG TAB PO SCH (09:24)
[2019-06-15] MEDS: Carvedilol 6.25 MG TAB PO SCH ×2 (09:24→15:56)
[2019-06-15] MEDS: Potassium Chloride 20 MEQ TAB PO SCH ×2 (09:24→15:57)
[2019-06-15] MEDS: Famotidine 20 MG TAB PO SCH ×2 (09:24→20:31)
[2019-06-15] MEDS: Aspirin 81 mg Enteric Coated Tablet PO SCH (09:24)
[2019-06-15] MEDS: Loratadine 10 MG TAB PO SCH (09:25)
[2019-06-15] MEDS: Venlafaxine HCl XR 150 MG CAP PO SCH (09:25)
[2019-06-15] MEDS: Isosorbide Mononitrate (ER) 30 MG TAB PO SCH (09:25)
[2019-06-15] MEDS: Lisinopril 20 MG TAB PO SCH (09:25)
[2019-06-15] MEDS: Linezolid 600 MG TAB PO SCH (09:25)
[2019-06-15] MEDS: Docusate Sodium 100 MG/10 ML UDCUP PO SCH ×2 (09:28→20:55)
[2019-06-15] MEDS: Polyethylene Glycol 3350 17 GM Packet PO SCH (09:28)
--- NOTE | 2019-06-15 11:37 | PDOC.CPN ---
- Subjective Date: 06/15/19 Time: 11:36 Interval history: EP PROGRESS NOTE: 06/15/19 Follow up for atrial fibrillation. CHF is better compensated. Rate controlled. - Review of Systems General: denies: fever/chills, weight/appetite/sleep changes, night sweats, fatigue Respiratory: denies: cough, congestion, shortness of breath, exercise intolerance Cardiovascular: denies: chest pain, palpitation, edema, paroxysmal nocturnal dyspnea, orthopnea Gastrointestinal: denies: nausea, vomiting, diarrhea, constipation, abd pain, GI bleeding Musculoskeletal: denies: pain, tenderness, stiffness, swelling, arthritis/ arthralgias - Objective Allergies/Adverse Reactions: Allergies Allergy/AdvReac Type Severity Reaction Status Date / Time No Known Allergies Allergy Unverified 06/11/19 08:07 Visit Medications: Current Medications Acetaminophen (Tylenol) 650 mg PO Q4H PRN PRN Reason: Headache/Fever/Mild Pain (1-3) Last Admin: 06/14/19 20:44 Dose: 650 mg Hydrocodone Bitart/Acetaminophen ([place] 5/325) 1 tab PO Q4H PRN PRN Reason: Moderate Pain (4-6) Last Admin: 06/15/19 02:11 Dose: 1 tab Albuterol Sulfate (Albuterol Sulfate) 1.25 mg NEB [id number] PRN PRN Reason: Wheezing Allopurinol (Zyloprim) 100 mg PO BID [facility] Last Admin: 06/15/19 09:24 Dose: 100 mg Aspirin (Ecotrin) 81 mg PO DAILY [facility] Last Admin: 06/15/19 09:24 Dose: 81 mg Atorvastatin Calcium (Lipitor) 40 mg PO HS [facility] Last Admin: 06/14/19 20:46 Dose: 40 mg Bisacodyl (Dulcolax) 10 mg [place] DAILYPRN PRN PRN Reason: Constipation Budesonide (Pulmicort Neb Solution) 0.25 mg INH BID-RT [facility] Last Admin: 06/15/19 07:06 Dose: 0.25 mg Carvedilol (Coreg) 6.25 mg PO BID-WM [facility] Last Admin: 06/15/19 09:24 Dose: 6.25 mg Dextrose/Water (Dextrose 50%) 25 gm SLOW IVP PRN PRN PRN Reason: Hypoglycemia Docusate Sodium (Colace Liquid) 50 mg PO DAILY PRN PRN Reason: CONSTIPATION Docusate Sodium (Colace Liquid) 100 mg PO BID [facility] Last Admin: 06/15/19 09:28 Dose: Not Given Famotidine (Pepcid) 20 mg PO BID [facility] Last Admin: 06/15/19 09:24 Dose: 20 mg Furosemide (Lasix) 80 mg SLOW IVP 0600,1700 [facility] Last Admin: 06/15/19 06:14 Dose: 80 mg Glucagon (Glucagon) 1 mg IM PRN PRN PRN Reason: Hypoglycemia Dextrose/Water (D5w) 1,000 mls @ 0 mls/hr IV .Q0M PRN PRN Reason: Hypoglycemia Insulin Human Lispro (Humalog) 0 units SC .MODERATE SLIDING SC PRN PRN Reason: Moderate Correctional Scale Last Admin: 06/12/19 11:18 Dose: 4 unit Insulin Human Lispro (Humalog) 0 units SC .BEDTIME SLIDING SC PRN PRN Reason: Bedtime Correctional Scale Isosorbide Mononitrate (Imdur Er) 30 mg PO DAILY [facility] Last Admin: 06/15/19 09:25 Dose: 30 mg Linezolid (Zyvox) 600 mg PO Q12HR [facility] Last Admin: 06/15/19 09:25 Dose: 600 mg Lisinopril (Zestril) 20 mg PO DAILY [facility] Last Admin: 06/15/19 09:25 Dose: 20 mg Loratadine (Claritin) 10 mg PO DAILY [facility] Last Admin: 06/15/19 09:25 Dose: 10 mg Metolazone (Zaroxolyn) 2.5 mg PO 0830 [facility] Last Admin: 06/15/19 09:24 Dose: 2.5 mg Miscellaneous Medication (Pharmacy To Dose) 1 each PO DAILY [facility] Last Admin: 06/15/19 09:28 Dose: Not Given Ondansetron HCl (Zofran Odt) 4 mg PO Q6H PRN PRN Reason: Nausea/Vomiting Ondansetron HCl (Zofran) 4 mg IVP Q6H PRN PRN Reason: Nausea/Vomiting Polyethylene Glycol (Miralax) 17 gm PO DAILY [facility] Last Admin: 06/15/19 09:28 Dose: Not Given Potassium Chloride (K-Dur) 40 meq PO BID-[facility] Last Admin: 06/15/19 09:24 Dose: 40 meq Senna/Docusate Sodium (Senokot S) 2 tab PO BID PRN PRN Reason: Constipation Sodium Chloride (Flush - Normal Saline) 10 ml IVF Q12HR [facility] Last Admin: 06/15/19 09:28 Dose: 10 ml Sodium Chloride (Flush - Normal Saline) 10 ml IVF PRN PRN PRN Reason: Saline Flush Last Admin: 06/11/19 17:23 Dose: 10 ml Terazosin HCl (Hytrin) 10 mg PO HS [facility] Last Admin: 06/14/19 20:44 Dose: 10 mg Venlafaxine HCl (Effexor Xr) 150 mg PO QAM [facility] Last Admin: 06/15/19 09:25 Dose: 150 mg Warfarin Sodium (Coumadin) 5 mg PO 1700 [facility] Last Admin: 06/14/19 18:19 Dose: 5 mg Vital Signs & Weight: Vital Signs Temp Pulse Resp BP Pulse Ox 06/15/19 07:37 97.6 F 99 17 140/93 H 95 06/15/19 07:06 80 18 100 06/15/19 03:19 98.0 F 80 20 115/72 98 Admit Weight 269 lb 8 oz Weight 245 lb 6.4 oz - Physical Exam General: alert & oriented x3, appears well, no apparent distress HEENT: mucus membranes moist, normocephaly Neck: supple neck, midline trachea, no JVD/HJR, no masses, no bruit, no lymphadenopathy, no thromegaly Cardiac: regular rate and rhythm, no murmur, regular rate, regular rhythm Lungs: clear to auscultation, normal breath sounds, normal exam, no wheeze, rales, rhonchi Neuro: cranial nerve 2-12 intact, grossly intact, motor function intact, sensory function intact, negative rhomberg, coordination normal, no lateralizing findings Abdomen: unremarkable, active bowel sounds, soft, non-tender, no masses, no pulsations/bruits, no hepatosplenomegaly Extremities: 1+ LE edema - Labs Result Diagrams: 06/13/19 04:19 06/15/19 04:26 Troponin/CKMB Troponin I 0.042 ng/mL (< 0.028) H 06/11/19 09:09 - Telemetry Supraventricular conduction: atrial fibrillation - Assessment/Plan Assessment/Plan: 1. Atrial fibrillation, persistent - rate controlled - INR subtherapeutic. RADHA guided CV with cardiology tomorrow - Amiodarone recommended if recurrence is seen vs OP ablation - Continue chronic OAC with Warfarin. 2 Dual ICD -normal function by interrogation -~8 months to ANNETTE
--- NOTE | 2019-06-15 13:18 | PDOC.CPN ---
- Subjective Date: 06/15/19 Time: 13:17 Interval history: he is doing well. breathing at baseline. - Review of Systems General: denies: fever/chills, weight/appetite/sleep changes, night sweats, fatigue Respiratory: denies: cough, congestion, shortness of breath, exercise intolerance Cardiovascular: denies: chest pain, palpitation, edema, paroxysmal nocturnal dyspnea, orthopnea Gastrointestinal: denies: nausea, vomiting, diarrhea, constipation, abd pain, GI bleeding Musculoskeletal: denies: pain, tenderness, stiffness, swelling, arthritis/ arthralgias Neurological: denies: numbness, syncope, seizure, weakness - Objective Allergies/Adverse Reactions: Allergies Allergy/AdvReac Type Severity Reaction Status Date / Time No Known Allergies Allergy Unverified 06/11/19 08:07 Visit Medications: Current Medications Acetaminophen (Tylenol) 650 mg PO Q4H PRN PRN Reason: Headache/Fever/Mild Pain (1-3) Last Admin: 06/14/19 20:44 Dose: 650 mg Hydrocodone Bitart/Acetaminophen ([place] 5/325) 1 tab PO Q4H PRN PRN Reason: Moderate Pain (4-6) Last Admin: 06/15/19 11:50 Dose: 1 tab Albuterol Sulfate (Albuterol Sulfate) 1.25 mg NEB [id number] PRN PRN Reason: Wheezing Allopurinol (Zyloprim) 100 mg PO BID [facility] Last Admin: 06/15/19 09:24 Dose: 100 mg Aspirin (Ecotrin) 81 mg PO DAILY [facility] Last Admin: 06/15/19 09:24 Dose: 81 mg Atorvastatin Calcium (Lipitor) 40 mg PO HS [facility] Last Admin: 06/14/19 20:46 Dose: 40 mg Bisacodyl (Dulcolax) 10 mg [place] DAILYPRN PRN PRN Reason: Constipation Budesonide (Pulmicort Neb Solution) 0.25 mg INH BID-RT [facility] Last Admin: 06/15/19 07:06 Dose: 0.25 mg Carvedilol (Coreg) 6.25 mg PO BID-WM [facility] Last Admin: 06/15/19 09:24 Dose: 6.25 mg Dextrose/Water (Dextrose 50%) 25 gm SLOW IVP PRN PRN PRN Reason: Hypoglycemia Docusate Sodium (Colace Liquid) 50 mg PO DAILY PRN PRN Reason: CONSTIPATION Docusate Sodium (Colace Liquid) 100 mg PO BID [facility] Last Admin: 06/15/19 09:28 Dose: Not Given Famotidine (Pepcid) 20 mg PO BID [facility] Last Admin: 06/15/19 09:24 Dose: 20 mg Furosemide (Lasix) 80 mg SLOW IVP 0600,1700 [facility] Last Admin: 06/15/19 06:14 Dose: 80 mg Glucagon (Glucagon) 1 mg IM PRN PRN PRN Reason: Hypoglycemia Dextrose/Water (D5w) 1,000 mls @ 0 mls/hr IV .Q0M PRN PRN Reason: Hypoglycemia Insulin Human Lispro (Humalog) 0 units SC .MODERATE SLIDING SC PRN PRN Reason: Moderate Correctional Scale Last Admin: 06/12/19 11:18 Dose: 4 unit Insulin Human Lispro (Humalog) 0 units SC .BEDTIME SLIDING SC PRN PRN Reason: Bedtime Correctional Scale Isosorbide Mononitrate (Imdur Er) 30 mg PO DAILY [facility] Last Admin: 06/15/19 09:25 Dose: 30 mg Linezolid (Zyvox) 600 mg PO Q12HR [facility] Last Admin: 06/15/19 09:25 Dose: 600 mg Lisinopril (Zestril) 20 mg PO DAILY [facility] Last Admin: 06/15/19 09:25 Dose: 20 mg Loratadine (Claritin) 10 mg PO DAILY [facility] Last Admin: 06/15/19 09:25 Dose: 10 mg Metolazone (Zaroxolyn) 2.5 mg PO 0830 [facility] Last Admin: 06/15/19 09:24 Dose: 2.5 mg Miscellaneous Medication (Pharmacy To Dose) 1 each PO DAILY [facility] Last Admin: 06/15/19 09:28 Dose: Not Given Ondansetron HCl (Zofran Odt) 4 mg PO Q6H PRN PRN Reason: Nausea/Vomiting Ondansetron HCl (Zofran) 4 mg IVP Q6H PRN PRN Reason: Nausea/Vomiting Polyethylene Glycol (Miralax) 17 gm PO DAILY [facility] Last Admin: 06/15/19 09:28 Dose: Not Given Potassium Chloride (K-Dur) 40 meq PO BID-[facility] Last Admin: 06/15/19 09:24 Dose: 40 meq Senna/Docusate Sodium (Senokot S) 2 tab PO BID PRN PRN Reason: Constipation Sodium Chloride (Flush - Normal Saline) 10 ml IVF Q12HR [facility] Last Admin: 06/15/19 09:28 Dose: 10 ml Sodium Chloride (Flush - Normal Saline) 10 ml IVF PRN PRN PRN Reason: Saline Flush Last Admin: 06/11/19 17:23 Dose: 10 ml Terazosin HCl (Hytrin) 10 mg PO HS [facility] Last Admin: 06/14/19 20:44 Dose: 10 mg Venlafaxine HCl (Effexor Xr) 150 mg PO QAM [facility] Last Admin: 06/15/19 09:25 Dose: 150 mg Warfarin Sodium (Coumadin) 5 mg PO 1700 [facility] Last Admin: 06/14/19 18:19 Dose: 5 mg Warfarin Sodium (Coumadin) 2.5 mg PO TTHSA [facility] Vital Signs & Weight: Vital Signs Temp Pulse Pulse Resp BP BP BP 06/15/19 11:37 97.5 F L 80 18 116/64 06/15/19 10:20 80 94/72 124/83 06/15/19 07:37 97.6 F 99 17 140/93 H 06/15/19 07:06 80 18 06/15/19 03:19 98.0 F 80 20 115/72 Pulse Ox Pulse Ox Pulse Ox 06/15/19 11:37 97 06/15/19 10:20 98 97 06/15/19 07:37 95 06/15/19 07:06 100 06/15/19 03:19 98 Admit Weight 274 lb Weight 245 lb 6.4 oz - Physical Exam General: alert & oriented x3 HEENT: mucus membranes moist Neck: supple neck Cardiac: regular rate and rhythm Lungs: clear to auscultation Neuro: grossly intact Abdomen: active bowel sounds Extremities: no edema Skin: clear Musculoskeletal: no pain - Labs Result Diagrams: 06/13/19 04:19 06/15/19 04:26 Troponin/CKMB Troponin I 0.042 ng/mL (< 0.028) H 06/11/19 09:09 - Telemetry Supraventricular conduction: other (V paced.) - Assessment/Plan Assessment/Plan: 1. Acute on chronic systolic CHF 2. AICD in place 3. Aflutter/Afib 99% of the time for last 7 months. 4. Non ischemic CM, normal coronaries per patient report on C done earlier this year. 5. HTN PLAN: - On PO Lasix - Plan on RADHA/Cardioversion. Tomorrow. We spoke about risks and benefits and he agrees to proceed.
[2019-06-15] MEDS: Furosemide 40 MG TAB PO SCH (13:56)
[2019-06-15] MEDS: Warfarin Sodium 5 MG TAB PO SCH (15:56)
[2019-06-15] MEDS ORDERED: Warfarin Sodium 2.5 MG TAB PO SCH (17:00)
--- NOTE | 2019-06-15 17:59 | PDOC.HOSPP ---
- Subjective Subjective: Seen and examined. Patient with congestive heart failure on diuretic therapy per cardiology on the case. Patient with ejection fraction of 20%. Patient with skin lesion to the left gluteal area consistent with MRSA. Infectious disease consultation is on the case. Patient with atrial fibrillation on Coumadin therapy who was subtherapeutic on admission. EP evaluation for possible cardioversion. Patient's blood sugars have been good. Patient's creatinine has been tolerating diuretic therapy. Patient with Julien catheter for decreased ability to void urine, on admission. Will discontinue Julien catheter with voiding trial, may need to replace if unable to void. All questions answered in detail. Patient happy with plan of care. Guards at bedside. - Objective Vital Signs & Weight: Vital Signs (12 hours) Temp Pulse Pulse Resp BP BP BP 06/15/19 15:28 97.9 F 80 18 116/75 06/15/19 11:37 97.5 F L 80 18 116/64 06/15/19 10:20 80 94/72 124/83 06/15/19 07:37 97.6 F 99 17 140/93 H 06/15/19 07:06 80 18 Pulse Ox Pulse Ox Pulse Ox 06/15/19 15:28 99 06/15/19 11:37 97 06/15/19 10:20 98 97 06/15/19 07:37 95 06/15/19 07:06 100 Weight Admit Weight 274 lb Weight 245 lb 6.4 oz I&O: 06/14/19 06/15/19 06/16/19 06:59 06:59 06:59 Intake Total 720 1440 Output Total 4125 3950 300 Balance -3405 -2510 -300 Result Diagrams: 06/13/19 04:19 06/15/19 04:26 Additional Labs: Accuchecks 06/15/19 06/15/19 06/15/19 16:21 10:50 05:55 POC Glucose 97 149 H 141 H 06/14/19 20:23 POC Glucose 141 H Radiology Reviewed by me: Yes Hospitalist ROS - Review of Systems All other systems reviewed; all pertinent +/- noted in HPI/Subj - Medication Medications: Active Medications Generic Name Dose Route Start Last Admin Trade Name Freq PRN Reason Stop Dose Admin Acetaminophen 650 mg 06/11/19 08:45 06/14/19 20:44 Tylenol PO 650 mg Q4H PRN Administration Headache/Fever/Mild Pain (1-3) Hydrocodone Bitart/Acetaminophen 1 tab 06/11/19 08:45 06/15/19 11:50 [place] 5/325 PO 1 tab Q4H PRN Administration Moderate Pain (4-6) Allopurinol 100 mg 06/11/19 21:00 06/15/19 09:24 Zyloprim PO 100 mg BID [facility] Administration Aspirin 81 mg 06/13/19 09:00 06/15/19 09:24 Ecotrin PO 81 mg DAILY [facility] Administration Atorvastatin Calcium 40 mg 06/11/19 21:00 06/14/19 20:46 Lipitor PO 40 mg HS [facility] Administration Budesonide 0.25 mg 06/12/19 18:30 06/15/19 07:06 Pulmicort Neb Solution INH 0.25 mg BID-RT [facility] Administration Carvedilol 6.25 mg 06/14/19 17:00 06/15/19 15:56 Coreg PO 6.25 mg BID-WM [facility] Administration Docusate Sodium 100 mg 06/14/19 21:00 06/15/19 09:28 Colace Liquid PO Not Given BID [facility] Famotidine 20 mg 06/11/19 09:00 06/15/19 09:24 Pepcid PO 20 mg BID [facility] Administration Furosemide 40 mg 06/15/19 14:00 06/15/19 13:56 Lasix PO 40 mg 0900,1400 [facility] Administration Insulin Human Lispro 0 units 06/11/19 08:45 06/12/19 11:18 Humalog SC 4 unit .MODERATE SLIDING SC PRN Administration Moderate Correctional Scale Isosorbide Mononitrate 30 mg 06/15/19 09:00 06/15/19 09:25 Imdur Er PO 30 mg DAILY [facility] Administration Linezolid 600 mg 06/13/19 21:00 06/15/19 09:25 Zyvox PO 600 mg Q12HR [facility] Administration Lisinopril 20 mg 06/15/19 09:00 06/15/19 09:25 Zestril PO 20 mg DAILY [facility] Administration Loratadine 10 mg 06/13/19 09:00 06/15/19 09:25 Claritin PO 10 mg DAILY [facility] Administration Metolazone 2.5 mg 06/12/19 08:30 06/15/19 09:24 Zaroxolyn PO 2.5 mg 0830 [facility] Administration Miscellaneous Medication 1 each 06/13/19 09:00 06/15/19 09:28 Pharmacy To Dose PO Not Given DAILY [facility] Polyethylene Glycol 17 gm 06/15/19 09:00 06/15/19 09:28 Miralax PO Not Given DAILY [facility] Potassium Chloride 40 meq 06/13/19 17:00 06/15/19 15:57 K-Dur PO 40 meq BID-WM [facility] Administration Sodium Chloride 10 ml 06/11/19 21:00 06/15/19 09:28 Flush - Normal Saline IVF 10 ml Q12HR [facility] Administration Sodium Chloride 10 ml 06/11/19 09:01 06/11/19 17:23 Flush - Normal Saline IVF 10 ml PRN PRN Administration Saline Flush Terazosin HCl 10 mg 06/11/19 21:00 06/14/19 20:44 Hytrin PO 10 mg HS [facility] Administration Venlafaxine HCl 150 mg 06/13/19 09:00 06/15/19 09:25 Effexor Xr PO 150 mg QAM [facility] Administration Warfarin Sodium 5 mg 06/13/19 17:00 06/15/19 15:56 Coumadin PO 5 mg 1700 [facility] Administration - Exam General Appearance: NAD, awake alert Eye: PERRL ENT: normocephalic atraumatic, moist mucosa Neck: supple, symmetric, no lymphadenopathy Heart: no murmur, no gallops, no rubs, irregular Respiratory: CTAB, no wheezes, no rales, no ronchi Gastrointestinal: soft, non-tender, non-distended, no guarding, no rigidity Extremities: 1+ LE edema Skin: no lesions, no rashes Skin - other findings: Left gluteal lesion covered by clean newly placed dressing Neurological: cranial nerve grossly intact, no focal deficits Musculoskeletal: generalized weakness Psychiatric: A&O x 3 Hosp A/P (1) CHF (congestive heart failure) Code(s): I50.9 - HEART FAILURE, UNSPECIFIED Status: Acute (2) Skin ulcer Code(s): L98.499 - NON-PRESSURE CHRONIC ULCER OF SKIN OF SITES W UNSP SEVERITY Status: Acute (3) Anemia Code(s): D64.9 - ANEMIA, UNSPECIFIED Status: Chronic (4) CKD (chronic kidney disease) stage 2, GFR 60-89 ml/min Code(s): N18.2 - CHRONIC KIDNEY DISEASE, STAGE 2 (MILD) Status: Chronic (5) Acute on chronic combined systolic (congestive) and diastolic (congestive) heart failure Code(s): I50.43 - ACUTE ON CHRONIC COMBINED SYSTOLIC AND DIASTOLIC HRT FAIL Status: Acute (6) Acute systolic CHF (congestive heart failure) Code(s): I50.21 - ACUTE SYSTOLIC (CONGESTIVE) HEART FAILURE Status: Acute (7) Hypokalemia Code(s): E87.6 - HYPOKALEMIA Status: Acute (8) Seizure disorder Code(s): G40.909 - EPILEPSY, UNSP, NOT INTRACTABLE, WITHOUT STATUS EPILEPTICUS Status: Acute (9) Diabetes mellitus, type II, insulin dependent Code(s): E11.9 - TYPE 2 DIABETES MELLITUS WITHOUT COMPLICATIONS; Z79.4 - HEALTHCARE SOCIAL WORKER (CURRENT) USE OF INSULIN Status: Chronic (10) HLD (hyperlipidemia) Code(s): E78.5 - HYPERLIPIDEMIA, UNSPECIFIED Status: Chronic Qualifiers: (11) HTN (hypertension) Code(s): I10 - ESSENTIAL (PRIMARY) HYPERTENSION Status: Chronic Qualifiers: (12) Hypertensive urgency Code(s): I16.0 - HYPERTENSIVE URGENCY Status: Chronic - Plan Plan: medical unit telemetry cardiology consultation, recommendations appreciated electrophysiology 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 prophylaxis DVT prophylaxis - SCDs and Coumadin chronically
[2019-06-15] MEDS: Terazosin HCl 5 MG CAP PO SCH (20:30)
[2019-06-15] MEDS: Atorvastatin Calcium 40 MG TAB PO SCH (20:31)
--- NOTE | 2019-06-16 01:07 | CON ---
DATE OF CONSULTATION: 06/15/2019 REASON FOR CONSULTATION: Evaluate skin lesion and the need for antimicrobial therapy. HISTORY OF PRESENT ILLNESS: A 58-year-old patient, has a history of nonischemic cardiomyopathy reportedly with normal previous cardiac catheterization done at [facility]. The patient is an inmate at [facility] and this is the second admission for decompensated CHF. He also was found to have what appeared to be an inflammatory process associated with ulceration in the left gluteal region. On arrival, the area was round-shaped, measuring about 1.5 cm, quite superficial. The skin surrounding this area of ulceration did not appear to have inflammatory changes. Currently , he is being treated in telemetry and is feeling a little better. He denies headaches. No visual symptoms, sore throat, odynophagia, or dysphagia. No dental pain. No back pain. Moderate dyspnea. No cough. No chest pain. No abdominal pain, diarrhea, or genitourinary symptoms. He developed this area of ulceration in the new unit where he has been transferred to. According to one of the guards, the unit has problems with cleanliness and sanitation. 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 SOCIAL HISTORY: Former smoker. No drug use. FAMILY HISTORY: Noncontributory. CURRENT MEDICATIONS: 1. P.r.n. medications. 2. Allopurinol. 3. Aspirin. 4. Lipitor. 5. Inhalers. 6. Coreg. 7. Pepcid. 8. Lasix. 9. Insulin. 10. Lisinopril. 11. Zyvox. 12. Metolazone. 13. MiraLAX. 14. Warfarin. PHYSICAL EXAMINATION: VITAL SIGNS: The patient has had nl temperature since admission. All other vital signs are normal. SKIN: Shows the round ulceration in the left gluteal region. The ulceration now has 100% granulation tissue. It is quite superficial, soft. There is no induration around the area. Minor tenderness. Peripheral IV access. The patient is voiding with an indwelling Julien catheter. No lymphadenopathy. HEENT: Ocular movements conjugate. Oral cavity with numerous [place] teeth with quite a bit of decay. NECK: Supple. No jugular venous distention. LUNGS: With faint basilar crackles. No wheezing. HEART: S1, S2. Regular rate. No S3 or S4. ABDOMEN: Soft, not distended or tender. No ascites. No bladder distention. EXTREMITIES: No joint inflammatory activity. 2+ edema in lower extremities. Moves extremities equally. He is able to bear weight and maintain the upright posture. His pulses are 1+ in dorsalis pedis. NEURO: Cognitive function appears to be intact. LABORATORY STUDIES: Sodium 143, creatinine 1.21, which is better than his baseline and his bilirubin was 1.5. Transaminases normal. Alkaline phosphatase 88, albumin 3.4. Urinalysis was normal. Cultures from the wound revealed MRSA and Acinetobacter baumannii complex. ASSESSMENT: 1. Nonischemic cardiomyopathy, this is the 2nd episode of decompensation which prompted admission. 2. Superficial area of skin ulceration with colonization by methicillin- resistant Staphylococcus aureus and Acinetobacter without evidence of inflammatory process. DISCUSSION AND PLAN: In view of the lack of invasiveness of this process, this appears to be just superficial colonization. There is no inflammatory phenomenon around the ulcer and I would recommend discontinuation of antimicrobial therapy and just topical wound care. Whatever exposures in the penitentiary unit need to be corrected to avoid the recurrences. Job ID: [id number] [facility]
[2019-06-16] MEDS: HYDROcodone/Acetaminophen 5/325 mg Tablet PO PRN ×3 (03:20→15:46)
[2019-06-16 04:58] LABS: INR-International Normal Ratio 1.4; Prothrombin Time 17.5 SEC (12.0-14.7)
[2019-06-16] MEDS: Lisinopril 20 MG TAB PO SCH (08:42)
[2019-06-16] MEDS: Aspirin 81 mg Enteric Coated Tablet PO SCH (08:42)
[2019-06-16] MEDS: Carvedilol 6.25 MG TAB PO SCH ×2 (08:42→16:39)
[2019-06-16] MEDS: Venlafaxine HCl XR 150 MG CAP PO SCH (08:42)
[2019-06-16] MEDS: Loratadine 10 MG TAB PO SCH (08:42)
[2019-06-16] MEDS: Metolazone 2.5 MG TAB PO SCH (08:42)
[2019-06-16] MEDS: Isosorbide Mononitrate (ER) 30 MG TAB PO SCH (08:42)
[2019-06-16] MEDS: Potassium Chloride 20 MEQ TAB PO SCH ×2 (08:42→16:39)
[2019-06-16] MEDS: Famotidine 20 MG TAB PO SCH ×2 (08:43→21:19)
[2019-06-16] MEDS: Allopurinol 100 MG TAB PO SCH ×2 (08:44→21:18)
[2019-06-16] MEDS: Finasteride 5 MG TAB PO SCH (08:44)
[2019-06-16] MEDS: Furosemide 40 MG TAB PO SCH ×2 (08:44→15:46)
[2019-06-16] MEDS: Polyethylene Glycol 3350 17 GM Packet PO SCH (08:45)
[2019-06-16] MEDS: Docusate Sodium 100 MG/10 ML UDCUP PO SCH ×2 (08:45→21:19)
[2019-06-16 09:20] LABS: Anion Gap 10 mmol/L (10-20); BUN (Urea Nitrogen) 17 mg/dL (8.4-25.7); Calc. Creatinine Clearance 93 mL/min (70-130); Calcium 9.5 mg/dL (7.8-10.44); Carbon Dioxide 36 mmol/L (22-29); Chloride 100 mmol/L (98-107); Estimated GFR-MDRD 66; Glucose 111 mg/dL (70-105); Potassium 4.2 mmol/L (3.5-5.1); Sodium 142 mmol/L (136-145)
[2019-06-16] MEDS: Budesonide 0.25 MG/2 ML NEB INH SCH ×2 (09:40→18:40)
[2019-06-16] MEDS ORDERED: ePHEDrine/0.9% NaCl/PF SYRINGE 50 mg/10 ml ONE (11:03)
[2019-06-16] MEDS ORDERED: PROPOFOL 200 MG/20 ML VIAL ONE (11:03)
[2019-06-16] MEDS ORDERED: PROPOFOL 20 ML ONE ×2 (11:06→11:18)
--- NOTE | 2019-06-16 14:30 | PDOC.HOSPP ---
- Subjective Subjective: Seen and examined the same. Patient breathing well on room air. Patient responded well with congestive heart failure to maximal medical therapy with diuretics. Cardiology planning for possible cardioversion today, recommendations appreciated. NPO. Infectious disease on the case, recommendations appreciated. Julien catheter was removed and the patient is able to avoid has bladder afterwards without problems. BPH medications on board. - Objective Vital Signs & Weight: Vital Signs (12 hours) Temp Pulse Resp BP Pulse Ox 06/16/19 09:40 68 16 06/16/19 08:00 97.2 F L 85 18 128/95 H 95 06/16/19 04:00 133/99 H 06/16/19 03:27 97.7 F 81 14 133/100 H 97 Weight Admit Weight 274 lb Weight 245 lb 6.4 oz I&O: 06/15/19 06/16/19 06/17/19 06:59 06:59 06:59 Intake Total 1440 1420 180 Output Total 3950 3500 550 Balance -2510 -2080 -370 Result Diagrams: 06/13/19 04:19 06/16/19 08:29 Additional Labs: Accuchecks 06/16/19 06/15/19 06/15/19 05:58 20:40 16:21 POC Glucose 121 H 186 H 97 Radiology Reviewed by me: Yes Hospitalist ROS - Review of Systems All other systems reviewed; all pertinent +/- noted in HPI/Subj - Medication Medications: Active Medications Generic Name Dose Route Start Last Admin Trade Name Freq PRN Reason Stop Dose Admin Acetaminophen 650 mg 06/11/19 08:45 06/14/19 20:44 Tylenol PO 650 mg Q4H PRN Administration Headache/Fever/Mild Pain (1-3) Hydrocodone Bitart/Acetaminophen 1 tab 06/11/19 08:45 06/16/19 08:42 [place] 5/325 PO 1 tab Q4H PRN Administration Moderate Pain (4-6) Allopurinol 100 mg 06/11/19 21:00 06/16/19 08:44 Zyloprim PO 100 mg BID ARTURO Administration Aspirin 81 mg 06/13/19 09:00 06/16/19 08:42 Ecotrin PO 81 mg DAILY ARTURO Administration Atorvastatin Calcium 40 mg 06/11/19 21:00 06/15/19 20:31 Lipitor PO 40 mg HS ARTURO Administration Budesonide 0.25 mg 06/12/19 18:30 06/16/19 09:40 Pulmicort Neb Solution INH 0.25 mg BID-RT ARTURO Administration Carvedilol 6.25 mg 06/14/19 17:00 06/16/19 08:42 Coreg PO 6.25 mg BID-WM ARTURO Administration Docusate Sodium 100 mg 06/14/19 21:00 06/16/19 08:45 Colace Liquid PO Not Given BID ARUTRO Famotidine 20 mg 06/11/19 09:00 06/16/19 08:43 Pepcid PO 20 mg BID ARTURO Administration Finasteride 5 mg 06/16/19 09:00 06/16/19 08:44 Proscar PO 5 mg DAILY ARTURO Administration Furosemide 40 mg 06/15/19 14:00 06/16/19 08:44 Lasix PO 40 mg 0900,1400 ARTURO Administration Insulin Human Lispro 0 units 06/11/19 08:45 06/12/19 11:18 Humalog SC 4 unit .MODERATE SLIDING SC PRN Administration Moderate Correctional Scale Isosorbide Mononitrate 30 mg 06/15/19 09:00 06/16/19 08:42 Imdur Er PO 30 mg DAILY ARTURO Administration Lisinopril 20 mg 06/15/19 09:00 06/16/19 08:42 Zestril PO 20 mg DAILY ARTURO Administration Loratadine 10 mg 06/13/19 09:00 06/16/19 08:42 Claritin PO 10 mg DAILY ARTURO Administration Metolazone 2.5 mg 06/12/19 08:30 06/16/19 08:42 Zaroxolyn PO 2.5 mg 0830 ARTURO Administration Miscellaneous Medication 1 each 06/13/19 09:00 06/16/19 08:45 Pharmacy To Dose PO Not Given DAILY [facility] Polyethylene Glycol 17 gm 06/15/19 09:00 06/16/19 08:45 Miralax PO Not Given DAILY ARTURO Potassium Chloride 40 meq 06/13/19 17:00 06/16/19 08:42 K-Dur PO 40 meq BID-WM ARTURO Administration Sodium Chloride 10 ml 06/11/19 21:00 06/16/19 08:45 Flush - Normal Saline IVF 10 ml Q12HR ARTURO Administration Sodium Chloride 10 ml 06/11/19 09:01 06/11/19 17:23 Flush - Normal Saline IVF 10 ml PRN PRN Administration Saline Flush Terazosin HCl 10 mg 06/11/19 21:00 06/15/19 20:30 Hytrin PO 10 mg HS ARTURO Administration Venlafaxine HCl 150 mg 06/13/19 09:00 06/16/19 08:42 Effexor Xr PO 150 mg QAM ARTURO Administration Warfarin Sodium 5 mg 06/13/19 17:00 06/15/19 15:56 Coumadin PO 5 mg 1700 ARTURO Administration - Exam General Appearance: NAD, awake alert Eye: PERRL ENT: normocephalic atraumatic, moist mucosa Neck: supple, symmetric, no lymphadenopathy Heart: no murmur, no gallops, no rubs, irregular Respiratory: CTAB, no wheezes, no rales, no ronchi Gastrointestinal: soft, non-tender, non-distended, no guarding, no rigidity Extremities: 1+ LE edema Skin: no lesions, no rashes Neurological: cranial nerve grossly intact, no focal deficits Musculoskeletal: generalized weakness Psychiatric: normal affect, A&O x 3 Hosp A/P (1) CHF (congestive heart failure) Code(s): I50.9 - HEART FAILURE, UNSPECIFIED Status: Acute (2) Skin ulcer Code(s): L98.499 - NON-PRESSURE CHRONIC ULCER OF SKIN OF SITES W UNSP SEVERITY Status: Acute (3) Anemia Code(s): D64.9 - ANEMIA, UNSPECIFIED Status: Chronic (4) CKD (chronic kidney disease) stage 2, GFR 60-89 ml/min Code(s): N18.2 - CHRONIC KIDNEY DISEASE, STAGE 2 (MILD) Status: Chronic (5) Acute on chronic combined systolic (congestive) and diastolic (congestive) heart failure Code(s): I50.43 - ACUTE ON CHRONIC COMBINED SYSTOLIC AND DIASTOLIC HRT FAIL Status: Acute (6) Acute systolic CHF (congestive heart failure) Code(s): I50.21 - ACUTE SYSTOLIC (CONGESTIVE) HEART FAILURE Status: Acute (7) Hypokalemia Code(s): E87.6 - HYPOKALEMIA Status: Acute (8) Seizure disorder Code(s): G40.909 - EPILEPSY, UNSP, NOT INTRACTABLE, WITHOUT STATUS EPILEPTICUS Status: Acute (9) Diabetes mellitus, type II, insulin dependent Code(s): E11.9 - TYPE 2 DIABETES MELLITUS WITHOUT COMPLICATIONS; Z79.4 - [facility] (CURRENT) USE OF INSULIN Status: Chronic (10) HLD (hyperlipidemia) Code(s): E78.5 - HYPERLIPIDEMIA, UNSPECIFIED Status: Chronic Qualifiers: (11) HTN (hypertension) Code(s): I10 - ESSENTIAL (PRIMARY) HYPERTENSION Status: Chronic Qualifiers: (12) Hypertensive urgency Code(s): I16.0 - HYPERTENSIVE URGENCY Status: Chronic - Plan Plan: medical unit telemetry cardiology consultation, recommendations appreciated electrophysiology disassembler specialist consultation, recommendations appreciated infectious disease consultation, recommendations appreciated possible cardioversion patient tolerating diuretics for congestive heart failure breathing well on room air, CHF responding to maximum medical therapy patient on broad-spectrum antibiotics for infectious disease specialist DC Julien catheter, voiding without difficulty medications for BPH continue short acting insulin for glucose control blood pressure control patient responding to maximal medical therapy G.I. prophylaxis DVT prophylaxis - SCDs and Coumadin chronically
[2019-06-16] MEDS: HumaLOG 300 UNITS/3 ML VIAL SC PRN (16:41)
[2019-06-16] MEDS: Warfarin Sodium 5 MG TAB PO SCH (16:44)
--- NOTE | 2019-06-16 17:59 | EKG ---
Test Reason : POST CARDIOVRSION Blood Pressure : / mmHG Vent. Rate : 074 BPM Atrial Rate : 074 BPM P-R Int : 258 ms QRS Dur : 128 ms QT Int : 428 ms P-R-T Axes : 068 -25 -74 degrees QTc Int : 475 ms Sinus rhythm with 1st degree A-V block Non-specific intra-ventricular conduction block T wave abnormality, consider inferolateral ischemia Abnormal ECG When compared with ECG of 06-FEB-2019 12:06, Sinus rhythm has replaced Electronic ventricular pacemaker Confirmed by Kelley PINEDA ([id number]) on 06/16/2019 5:59:29 PM Referred By: LONNY Confirmed By:Kelley PINEDA
--- NOTE | 2019-06-16 19:45 | ECHO ---
DATE OF SERVICE: 06/16/19 PREPROCEDURE DIAGNOSIS: Atrial flutter. The Anesthesiology department provided with sedation for the patient. Please see their notes for det ails. After adequate sedation was achieved, transesophageal probe was inserted into the mouth and into the esophagus. Multiplanar views were obtained. Left ventricle is normal size. Systolic function appears to be normal. Estimated EF at 50-55%. Left atrium is dilated. Left atrial appendage is a large appendage without mass or thrombus. Spontaneous echo contrast. Right atrium is mildly dilated. No mass or thrombus. The right ventricle is normal size. Aortic valve is sclerotic but opens well. Three cusps. No stenosis. There is mild aortic regurgitatio n. Mitral valve is structurally normal. There is moderate MR. No stenosis. Tricuspid valve is structurally normal. There is moderate TR with normal right ventricular systolic pressures. Pulmonary valve is structurally normal. There is mild PI. Thoracic aorta is with grade II/V atherosclerotic disease. CONCLUSIONS: 1. Normal LV systolic function, EF at 50-55%. 2. Left atrial enlargement. 3. Right atrial enlargement. 4. Moderate MR. 5. Mild AI 6. Mild PI. 7. Moderate TR. 8. Left atrial appendage is a large appendage with reduced velocities but no mass or thrombus, only spontaneous echo contrast.
--- NOTE | 2019-06-16 19:55 | OP ---
DATE OF PROCEDURE: 06/16/19 SURGEON: Lucas Bowens M.D. PROCEDURE: Direct current cardioversion. SUMMARY: The patient is a 58-year-old -[place] gentleman who has atrial flutter and it has become hear t failure. He was cleared with a transesophageal echo for any thrombus. One single shock was delivered at 100 joules synchronized successfully converting him from atrial flu tter into sinus rhythm. Sinus rhythm atrial sensed V pace. RECOMMENDATIONS: Continued anticoagulation. Continue other medications.
[2019-06-16] MEDS: Terazosin HCl 5 MG CAP PO SCH (21:18)
[2019-06-16] MEDS: Atorvastatin Calcium 40 MG TAB PO SCH (21:18)
[2019-06-17 05:15] LABS: Anion Gap 10 mmol/L (10-20); BUN (Urea Nitrogen) 18 mg/dL (8.4-25.7); Calc. Creatinine Clearance 97 mL/min (70-130); Carbon Dioxide 35 mmol/L (22-29); Chloride 98 mmol/L (98-107); Estimated GFR-MDRD 70; Glucose 164 mg/dL (70-105); Potassium 3.6 mmol/L (3.5-5.1); Sodium 139 mmol/L (136-145)
[2019-06-17 05:23] LABS: INR-International Normal Ratio 1.6; Prothrombin Time 18.5 SEC (12.0-14.7)
[2019-06-17] MEDS: Budesonide 0.25 MG/2 ML NEB INH SCH ×2 (08:33→18:38)
[2019-06-17] MEDS: Metolazone 2.5 MG TAB PO SCH (08:42)
[2019-06-17] MEDS: Lisinopril 20 MG TAB PO SCH (08:42)
[2019-06-17] MEDS: Allopurinol 100 MG TAB PO SCH ×2 (08:42→20:55)
[2019-06-17] MEDS: Potassium Chloride 20 MEQ TAB PO SCH ×2 (08:43→16:48)
[2019-06-17] MEDS: Loratadine 10 MG TAB PO SCH (08:43)
[2019-06-17] MEDS: Furosemide 40 MG TAB PO SCH ×2 (08:43→13:57)
[2019-06-17] MEDS: Isosorbide Mononitrate (ER) 30 MG TAB PO SCH (08:43)
[2019-06-17] MEDS: Aspirin 81 mg Enteric Coated Tablet PO SCH (08:43)
[2019-06-17] MEDS: Famotidine 20 MG TAB PO SCH ×2 (08:43→20:55)
[2019-06-17] MEDS: Carvedilol 6.25 MG TAB PO SCH ×2 (08:43→16:49)
[2019-06-17] MEDS: Venlafaxine HCl XR 150 MG CAP PO SCH (08:43)
[2019-06-17] MEDS: Finasteride 5 MG TAB PO SCH (08:43)
[2019-06-17] MEDS: Docusate Sodium 100 MG/10 ML UDCUP PO SCH ×2 (08:44→20:56)
[2019-06-17] MEDS: Polyethylene Glycol 3350 17 GM Packet PO SCH (08:44)
--- NOTE | 2019-06-17 14:05 | PDOC.HOSPP ---
- Subjective Subjective: Seen and examined. Patient doing very well this a.m. Breathing on room air. Julien catheter has remained out and he is voiding with handheld urinal. Patient with scrotal edema, remnant edema from CHF. I recommended to that he elevate the scrotum with a towel while he is in bed sleeping. Status post cardioversion. Pending cardiology evaluation this a.m., though likely back to the unit, guards at bedside. - Objective Vital Signs & Weight: Vital Signs (12 hours) Temp Pulse Resp BP Pulse Ox 06/17/19 11:45 98.0 F 76 20 134/83 94 L 06/17/19 08:33 69 16 06/17/19 08:00 97.4 F L 69 17 127/81 99 06/17/19 07:57 99 06/17/19 04:00 97.5 F L 69 23 H 123/85 98 Weight Admit Weight 274 lb Weight 250 lb I&O: 06/16/19 06/17/19 06/18/19 06:59 06:59 06:59 Intake Total 1420 1520 Output Total 3500 2350 Balance -2080 -830 Result Diagrams: 06/13/19 04:19 06/17/19 04:35 Additional Labs: Accuchecks 06/17/19 06/17/19 06/16/19 10:37 05:47 20:34 POC Glucose 157 H 163 H 133 H 06/16/19 16:35 POC Glucose 230 H Radiology Reviewed by me: Yes Hospitalist ROS - Review of Systems All other systems reviewed; all pertinent +/- noted in HPI/Subj - Medication Medications: Active Medications Generic Name Dose Route Start Last Admin Trade Name Freq PRN Reason Stop Dose Admin Acetaminophen 650 mg 06/11/19 08:45 06/14/19 20:44 Tylenol PO 650 mg Q4H PRN Administration Headache/Fever/Mild Pain (1-3) Hydrocodone Bitart/Acetaminophen 1 tab 06/11/19 08:45 06/16/19 15:46 [place] 5/325 PO 1 tab Q4H PRN Administration Moderate Pain (4-6) Allopurinol 100 mg 06/11/19 21:00 06/17/19 08:42 Zyloprim PO 100 mg BID ARTURO Administration Aspirin 81 mg 06/13/19 09:00 06/17/19 08:43 Ecotrin PO 81 mg DAILY ARTURO Administration Atorvastatin Calcium 40 mg 06/11/19 21:00 06/16/19 21:18 Lipitor PO 40 mg HS ARTURO Administration Budesonide 0.25 mg 06/12/19 18:30 06/17/19 08:33 Pulmicort Neb Solution INH 0.25 mg BID-RT ARTURO Administration Carvedilol 6.25 mg 06/14/19 17:00 06/17/19 08:43 Coreg PO 6.25 mg BID-WM ARTURO Administration Docusate Sodium 100 mg 06/14/19 21:00 06/17/19 08:44 Colace Liquid PO Not Given BID ARTURO Famotidine 20 mg 06/11/19 09:00 06/17/19 08:43 Pepcid PO 20 mg BID ARTURO Administration Finasteride 5 mg 06/16/19 09:00 06/17/19 08:43 Proscar PO 5 mg DAILY ARTURO Administration Furosemide 40 mg 06/15/19 14:00 06/17/19 13:57 Lasix PO 40 mg 0900,1400 ARTURO Administration Insulin Human Lispro 0 units 06/11/19 08:45 06/16/19 16:41 Humalog SC 4 unit .MODERATE SLIDING SC PRN Administration Moderate Correctional Scale Isosorbide Mononitrate 30 mg 06/15/19 09:00 06/17/19 08:43 Imdur Er PO 30 mg DAILY ARTURO Administration Lisinopril 20 mg 06/15/19 09:00 06/17/19 08:42 Zestril PO 20 mg DAILY ARTURO Administration Loratadine 10 mg 06/13/19 09:00 06/17/19 08:43 Claritin PO 10 mg DAILY ARTURO Administration Metolazone 2.5 mg 06/12/19 08:30 06/17/19 08:42 Zaroxolyn PO 2.5 mg 0830 ARTURO Administration Miscellaneous Medication 1 each 06/13/19 09:00 06/17/19 08:44 Pharmacy To Dose PO Not Given DAILY [facility] Polyethylene Glycol 17 gm 06/15/19 09:00 06/17/19 08:44 Miralax PO Not Given DAILY ARTURO Potassium Chloride 40 meq 06/13/19 17:00 06/17/19 08:43 K-Dur PO 40 meq BID-WM ARTURO Administration Sodium Chloride 10 ml 06/11/19 21:00 06/17/19 08:45 Flush - Normal Saline IVF 10 ml Q12HR ARTURO Administration Sodium Chloride 10 ml 06/11/19 09:01 06/11/19 17:23 Flush - Normal Saline IVF 10 ml PRN PRN Administration Saline Flush Venlafaxine HCl 150 mg 06/13/19 09:00 06/17/19 08:43 Effexor Xr PO 150 mg QAM ARTURO Administration Warfarin Sodium 5 mg 06/13/19 17:00 06/16/19 16:44 Coumadin PO 5 mg 1700 ARTURO Administration - Exam General Appearance: NAD Eye: anicteric sclera ENT: normocephalic atraumatic, moist mucosa Neck: supple, symmetric, no lymphadenopathy Heart: no murmur, no gallops, no rubs Respiratory: CTAB, no wheezes, no rales, no ronchi, normal chest expansion, no tachypnea Gastrointestinal: soft, non-tender, no guarding, no rigidity Gastrointestinal - other findings: : mild scrotal edema - recommended to elevate with towel in bed Extremities: no clubbing, no edema Skin: no lesions, no rashes Neurological: cranial nerve grossly intact, normal sensation to touch, no weakness Musculoskeletal: no muscle wasting Psychiatric: A&O x 3 Hosp A/P (1) CHF (congestive heart failure) Code(s): I50.9 - HEART FAILURE, UNSPECIFIED Status: Acute (2) Skin ulcer Code(s): L98.499 - NON-PRESSURE CHRONIC ULCER OF SKIN OF SITES W UNSP SEVERITY Status: Acute (3) Anemia Code(s): D64.9 - ANEMIA, UNSPECIFIED Status: Chronic (4) CKD (chronic kidney disease) stage 2, GFR 60-89 ml/min Code(s): N18.2 - CHRONIC KIDNEY DISEASE, STAGE 2 (MILD) Status: Chronic (5) Acute on chronic combined systolic (congestive) and diastolic (congestive) heart failure Code(s): I50.43 - ACUTE ON CHRONIC COMBINED SYSTOLIC AND DIASTOLIC HRT FAIL Status: Acute (6) Acute systolic CHF (congestive heart failure) Code(s): I50.21 - ACUTE SYSTOLIC (CONGESTIVE) HEART FAILURE Status: Acute (7) Hypokalemia Code(s): E87.6 - HYPOKALEMIA Status: Acute (8) Seizure disorder Code(s): G40.909 - EPILEPSY, UNSP, NOT INTRACTABLE, WITHOUT STATUS EPILEPTICUS Status: Acute (9) Diabetes mellitus, type II, insulin dependent Code(s): E11.9 - TYPE 2 DIABETES MELLITUS WITHOUT COMPLICATIONS; Z79.4 - [facility] (CURRENT) USE OF INSULIN Status: Chronic (10) HLD (hyperlipidemia) Code(s): E78.5 - HYPERLIPIDEMIA, UNSPECIFIED Status: Chronic Qualifiers: (11) HTN (hypertension) Code(s): I10 - ESSENTIAL (PRIMARY) HYPERTENSION Status: Chronic Qualifiers: (12) Hypertensive urgency Code(s): I16.0 - HYPERTENSIVE URGENCY Status: Chronic - Plan Plan: medical unit telemetry cardiology consultation, recommendations appreciated electrophysiology kelp cutter specialist consultation, recommendations appreciated infectious disease consultation, recommendations appreciated S/p cardioversion on 06/16 - tolerated procedure well successful patient tolerating diuretics for congestive heart failure breathing well on room air, CHF responding to maximum medical therapy patient on broad-spectrum antibiotics for infectious disease specialist DC Julien catheter, voiding without difficulty medications for BPH continue short acting insulin for glucose control blood pressure control patient responding to maximal medical therapy G.I. prophylaxis DVT prophylaxis - SCDs and Coumadin chronically Disposition: Plan for D/c back to unit when ok with cardiology. Paper Rx are in the paper chart.
[2019-06-17] MEDS: Warfarin Sodium 5 MG TAB PO SCH (16:49)
[2019-06-17] MEDS: HYDROcodone/Acetaminophen 5/325 mg Tablet PO PRN (16:49)
[2019-06-17] MEDS: Atorvastatin Calcium 40 MG TAB PO SCH (20:55)
[2019-06-17] MEDS ORDERED: Terazosin HCl 5 MG CAP PO SCH (21:00)
[2019-06-18 04:40] LABS: INR-International Normal Ratio 1.6; Prothrombin Time 18.7 SEC (12.0-14.7)
[2019-06-18 05:48] VITALS: BMI 33.0
[2019-06-18] MEDS: Famotidine 20 MG TAB PO SCH (07:58)
[2019-06-18] MEDS: Venlafaxine HCl XR 150 MG CAP PO SCH (07:58)
[2019-06-18] MEDS: Isosorbide Mononitrate (ER) 30 MG TAB PO SCH (07:58)
[2019-06-18] MEDS: Aspirin 81 mg Enteric Coated Tablet PO SCH (07:58)
[2019-06-18] MEDS: Potassium Chloride 20 MEQ TAB PO SCH (07:58)
[2019-06-18] MEDS: Lisinopril 20 MG TAB PO SCH (07:58)
[2019-06-18] MEDS: Metolazone 2.5 MG TAB PO SCH (07:58)
[2019-06-18] MEDS: Docusate Sodium 100 MG/10 ML UDCUP PO SCH (07:59)
[2019-06-18] MEDS: Finasteride 5 MG TAB PO SCH (07:59)
[2019-06-18] MEDS: Polyethylene Glycol 3350 17 GM Packet PO SCH (07:59)
[2019-06-18] MEDS: Carvedilol 6.25 MG TAB PO SCH (07:59)
[2019-06-18] MEDS: Allopurinol 100 MG TAB PO SCH (07:59)
[2019-06-18] MEDS: Loratadine 10 MG TAB PO SCH (07:59)
[2019-06-18] MEDS: Furosemide 40 MG TAB PO SCH (07:59)
[2019-06-18] MEDS: HYDROcodone/Acetaminophen 5/325 mg Tablet PO PRN (08:03)
[2019-06-18] MEDS: Budesonide 0.25 MG/2 ML NEB INH SCH (08:26)
[2019-06-18 12:26] VITALS: BP 124/80; TEMP 98.1
--- NOTE | 2019-06-19 00:58 | DIS ---
DATE OF ADMISSION: 06/11/2019 DATE OF DISCHARGE: 06/18/2019 REASON FOR HOSPITALIZATION: Shortness of breath and significant edema. SIGNIFICANT FINDINGS: The patient was diagnosed with acute congestive heart failure in addition to atrial flutter. PROCEDURES PERFORMED AND TREATMENTS RENDERED: The patient was admitted to medical unit with telemetry for maximum medical therapy. Please see full history and physical, consultation notes, and progress notes for details. The patient was seen and evaluated by Cardiology, who titrated cardiomyopathy regimen and diuretics appropriately. With maximum medical therapy, the patient's heart failure did improve dramatically and edema significantly improved and resolved. The patient was titrated off oxygen completely and saturating well on room air. Cardiology recommending the patient with atrial fibrillation/flutter would benefit from cardioversion, which was performed on 06/16/2019, by Dr. Bowens. Please see full operative report from Dr. Bowens for details. The patient was successfully cardioverted and remained in sinus rhythm postoperatively. The patient was recommended safe for discharge by Cardiology on 06/18/2019, with close followup in the outpatient setting. The patient was seen and evaluated by Infectious Disease specialist, Dr. Harkins, please see full consultation and progress notes for details. Dr. 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 The patient's gluteal skin wound will heal with daily wound care that can be continued in the outpatient setting. The patient recommended to keep the wound clean and dry with bandage changed daily. CONDITION ON DISCHARGE: Stable. SPECIFIC INSTRUCTIONS FOR THE PATIENT/FAMILY: 1. The patient is recommended to take all medications as directed, to be re-evaluated by primary care physician and Cardiology in the next 5 to 7 days. 2. The patient is recommended to follow up with primary care physician in the next 5 to 7 days. 3. The patient is recommended to follow up with Cardiology in the next 1 to 2 weeks. 4. The patient is recommended to restrict fluid intake to avoid future episodes of congestive heart failure. 5. The patient is recommended to follow up with Urology in the outpatient setting for benign prostatic hypertrophy, he can do this in the upcoming 3-4 weeks. 6. The patient is recommended to return to acute care hospital immediately if signs or symptoms return, worsen, or any other new symptoms occur. 7. Please follow up with Infectious Disease specialist, Dr. Harkins in the next 1 to 2 weeks. 8. The patient is recommended to have left gluteal wound kept clean and dry. TIME SPENT: Greater than 35 minutes spent coordinating care and discharge process for this patient. Job ID: [id number]
== END 2019-06-18 12:50 | DRG 291 ==
LOC: ERS 06:03 → 2NO 06:41
PROVIDERS: ADMIT Internal Medicine; ATTEND Internal Medicine
PROC: 0TPBX0Z Removal of Drainage Device from Bladder, External Approach (ICD-10-PCS; 2019-06-13)
PROC: B24BZZ4 Ultrasonography of Heart with Aorta, Transesophageal (ICD-10-PCS; principal; 2019-06-16)
PROC: 5A2204Z Restoration of Cardiac Rhythm, Single (ICD-10-PCS; 2019-06-16)
DX: I13.0 Hypertensive heart and chronic kidney disease with heart failure and stage 1 through stage 4 chronic kidney disease, or unspecified chronic kidney disease (principal); I50.43 Acute on chronic combined systolic (congestive) and diastolic (congestive) heart failure; I48.92 Unspecified atrial flutter; I48.19 Other persistent atrial fibrillation; N13.8 Other obstructive and reflux uropathy; K21.9 Gastro-esophageal reflux disease without esophagitis; E78.5 Hyperlipidemia, unspecified; E78.00 Pure hypercholesterolemia, unspecified; M19.90 Unspecified osteoarthritis, unspecified site; J43.9 Emphysema, unspecified; F32.9 Major depressive disorder, single episode, unspecified; F41.9 Anxiety disorder, unspecified; E11.51 Type 2 diabetes mellitus with diabetic peripheral angiopathy without gangrene; M10.9 Gout, unspecified; E87.6 Hypokalemia; N18.3 Chronic kidney disease, stage 3 (moderate); D63.1 Anemia in chronic kidney disease; I42.8 Other cardiomyopathies; B95.62 Methicillin resistant Staphylococcus aureus infection as the cause of diseases classified elsewhere; G40.909 Epilepsy, unspecified, not intractable, without status epilepticus; I16.0 Hypertensive urgency; L89.329 Pressure ulcer of left buttock, unspecified stage; N40.1 Benign prostatic hyperplasia with lower urinary tract symptoms; E11.22 Type 2 diabetes mellitus with diabetic chronic kidney disease; Z95.1 Presence of aortocoronary bypass graft; Z87.891 Personal history of nicotine dependence; Z79.82 Long term (current) use of aspirin; Z79.84 Long term (current) use of oral hypoglycemic drugs; Z79.51 Long term (current) use of inhaled steroids; Z79.899 Other long term (current) drug therapy; Z95.810 Presence of automatic (implantable) cardiac defibrillator
CPT/HCPCS: 36415; 36416; 76705; 80048; 80053; 81001; 82728; 83540; 83550; 83735; 85025; 85610; 87070; 87077; 87186; 87205; 90471; 90670; 92960; 93005; 93010; 93306; 93312; 93798; 93970; 94640; 99285; G0009; J1940; J2704; J2916; J3490; J7626